=== PATIENT | male | born 1940 | race Caucasian/White ===

== ENCOUNTER 2019-09-25 00:59 | Emergency (ER) | payer OTHER ==
[2019-09-25] MEDS ORDERED: TAMSULOSIN 0.4 MG SR CAP ONE (01:23)
[2019-09-25] MEDS ORDERED: CIPROFLOXACIN HCL 500 MG TAB ONE (01:23)
--- NOTE | 2019-09-25 01:25 | EDPHYS ---
Physician Documentation [facility] Name: Hiram Tomlinson Age: 78 yrs Sex: Male : 1940 Arrival Date: 09/25/2019 Time: 01:02 Bed 5 Private MD: ED Physician Norman Maldonado HPI: 09/25 01:21 This 78 yrs old Male presents to ER via Ambulatory with complaints of Urinary dannie Problem. 01:21 The patient presents with urinary symptoms, dribbling of urine, retention. Onset: The dannie symptoms/episode began/occurred 2 day(s) ago. Modifying factors: The symptoms are alleviated by nothing, the symptoms are aggravated by movement, pressure. Associated signs and symptoms: The patient has no apparent associated signs or symptoms. Severity of symptoms: At their worst the symptoms were mild, in the emergency department the symptoms are unchanged. The patient has not experienced similar symptoms in the past. Historical: - Allergies: 01:15 No Known Allergies; rr5 - PMHx: 01:15 COPD; rr5 - PSHx: 01:15 hip surgery; rr5 - Immunization history:: Flu vaccine is not up to date. - Social history:: Smoking status: Patient/guardian denies using tobacco. - Ebola Screening: : No symptoms or risks identified at this time. - Family history:: not pertinent. ROS: 01:21 Constitutional: Negative for fever, chills, and weight loss, Eyes: Negative for injury, dannie pain, redness, and discharge, ENT: Negative for injury, pain, and discharge, Neck: Negative for injury, pain, and swelling, Cardiovascular: Negative for chest pain, palpitations, and edema, Respiratory: Negative for shortness of breath, cough, wheezing, and pleuritic chest pain, Abdomen/GI: Negative for abdominal pain, nausea, vomiting, diarrhea, and constipation, Back: Negative for injury and pain, MS/Extremity: Negative for injury and deformity, Skin: Negative for injury, rash, and discoloration, Neuro: Negative for headache, weakness, numbness, tingling, and seizure, Psych: Negative for depression, anxiety, suicide ideation, homicidal ideation, and hallucinations, Allergy/Immunology: Negative for hives, rash, and allergies, Endocrine: Negative for neck swelling, polydipsia, polyuria, polyphagia, and marked weight changes, Hematologic/Lymphatic: Negative for swollen nodes, abnormal bleeding, and unusual bruising. 01:21 : Positive for urinary symptoms, of the suprapubic area. Exam: 01:21 Constitutional: This is a well developed, well nourished patient who is awake, alert, dannie and in no acute distress. Head/Face: Normocephalic, atraumatic. Eyes: Pupils equal round and reactive to light, extra-ocular motions intact. Lids and lashes normal. Conjunctiva and sclera are non-icteric and not injected. Cornea within normal limits. Periorbital areas with no swelling, redness, or edema. ENT: Nares patent. No nasal discharge, no septal abnormalities noted. Tympanic membranes are normal and external auditory canals are clear. Oropharynx with no redness, swelling, or masses, exudates, or evidence of obstruction, uvula midline. Mucous membranes moist. Neck: Trachea midline, no thyromegaly or masses palpated, and no cervical lymphadenopathy. Supple, full range of motion without nuchal rigidity, or vertebral point tenderness. No Meningismus. Chest/axilla: Normal chest wall appearance and motion. Nontender with no deformity. No lesions are appreciated. Cardiovascular: Regular rate and rhythm with a normal S1 and S2. No gallops, murmurs, or rubs. Normal PMI, no JVD. No pulse deficits. Respiratory: Lungs have equal breath sounds bilaterally, clear to auscultation and percussion. No rales, rhonchi or wheezes noted. No increased work of breathing, no retractions or nasal flaring. Back: No spinal tenderness. No costovertebral tenderness. Full range of motion. Skin: Warm, dry with normal turgor. Normal color with no rashes, no lesions, and no evidence of cellulitis. MS/ Extremity: Pulses equal, no cyanosis. Neurovascular intact. Full, normal range of motion. Neuro: Awake and alert, GCS 15, oriented to person, place, time, and situation. Cranial nerves II-XII grossly intact. Motor strength 5/5 in all extremities. Sensory grossly intact. Cerebellar exam normal. Normal gait. Psych: Awake, alert, with orientation to person, place and time. Behavior, mood, and affect are within normal limits. 01:21 Abdomen/GI: Inspection: distension, Bowel sounds: normal, Palpation: mild abdominal tenderness, in the suprapubic area, right lower quadrant and left lower quadrant, Liver: no appreciated palpable abnormalities, Hernia: not appreciated. Vital Signs: 01:11 BP 156 / 80; Pulse 98; Resp 18; Temp 97.7; Pulse Ox 95% on R/A; Weight 61.23 kg; Height aa1 5 ft. 8 in. (172.72 cm); 01:49 BP 129 / 59; Pulse 90; Resp 17; Pulse Ox 97% ; Pain 0/10; rr5 01:11 Body Mass Index 20.53 (61.23 kg, 172.72 cm) aa1 MDM: 01:07 Patient medically screened. [facility] 01:23 Data reviewed: vital signs, nurses notes, lab test result(s), urinalysis. [facility] 09/25 01:20 Order name: Urine Culture [facility] 09/25 01:30 Order name: Urine Dipstick--Ancillary (enter results) [facility] 09/25 01:20 Order name: Urine Dipstick-Ancillary (obtain specimen); Complete Time: : [facility] 09/25 01:20 Order name: Ni; Complete Time: : [facility] 09/25 01:20 Order name: Ni Leg Bag; Complete Time: : [facility] 09/25 01:27 Order name: Bladder Scanner; Complete Time: : rr5 Administered Medications: 01:26 Drug: Cipro 500 mg Route: PO; ao 02:04 Follow up: Response: No adverse reaction rr5 01:26 Drug: Flomax 0.4 mg Route: PO; ao 02:03 Follow up: Response: No adverse reaction rr5 Disposition: 09/25/19 01:24 Discharged to Home. Impression: Retention of urine, Retention of urine, unspecified. - Condition is Stable. - Discharge Instructions: Ni Catheter Care, Adult, Acute Urinary Retention, Male, Acute Urinary Retention, Male, [id number], Ni Catheter Care, Adult, [id number]. - Prescriptions for Cipro 250 mg Oral Tablet - take 1 tablet by ORAL route every 12 hours; 20 tablet. Flomax 0.4 mg Oral Capsule, Sust. Release 24 hr - take 1 capsule by ORAL route once daily 1/2 hour following the same meal each day; 30 capsule. - Medication Reconciliation Form, Thank You Letter, Antibiotic Education, Prescription Opioid Use form. - Follow up: Private Physician; When: 2 - 3 days; Reason: Recheck today's complaints, Continuance of care, Re-evaluation by your physician. Follow up: Ernesto Arellano MD; When: 1 - 2 days; Reason: Recheck today's complaints, Re-evaluation by your physician. - Problem is new. - Symptoms have improved. Signatures: Dispatcher [employer] EDMS Florecita Singh RN RN aa1 Norman Maldonado MD MD cha Ortiz, Alex, RN RN ao Roque, Raymond, RN RN rr5 Corrections: (The following items were deleted from the chart) 02:04 01:24 09/25/2019 01:24 Discharged to Home. Impression: Retention of urine; Retention of rr5 urine, unspecified. Condition is Stable. Forms are Medication Reconciliation Form, Thank You Letter, Antibiotic Education, Prescription Opioid Use. Follow up: Private Physician; When: 2 - 3 days; Reason: Recheck today's complaints, Continuance of care, Re-evaluation by your physician. Follow up: Ernesto Arellano; When: 1 - 2 days; Reason: Recheck today's complaints, Re-evaluation by your physician. Problem is new. Symptoms have improved. dannie
--- NOTE | 2019-09-25 01:25 | ER ---
Nurse's Notes [facility] Name: Hiram Tomlinson Age: 78 yrs Sex: Male : 1940 Arrival Date: 09/25/2019 Time: 01:02 Bed 5 Private MD: Diagnosis: Retention of urine;Retention of urine, unspecified Presentation: 09/25 01:11 Presenting complaint: Patient states: difficulty voiding since about noon this aa1 afternoon. Reports no rodney hx of urinary problems. Transition of care: patient was not received from another setting of care. Onset of symptoms was September 24, 2019 at 12:00. Risk Assessment: Do you want to hurt yourself or someone else? Patient reports no desire to harm self or others. Initial Sepsis Screen: Does the patient meet any 2 criteria? HR > 90 bpm. Does the patient have a suspected source of infection? Yes: Dysuria/Frequency/Urgency/UTI. Care prior to arrival: None. 01:11 Method Of Arrival: Ambulatory aa1 01:11 Acuity: BERTRAM 3 aa1 Triage Assessment: 01:11 General: Appears in no apparent distress. comfortable, Behavior is calm, cooperative, aa1 appropriate for age. Historical: - Allergies: 01:15 No Known Allergies; rr5 - PMHx: 01:15 COPD; rr5 - PSHx: 01:15 hip surgery; rr5 - Immunization history:: Flu vaccine is not up to date. - Social history:: Smoking status: Patient/guardian denies using tobacco. - Ebola Screening: : No symptoms or risks identified at this time. - Family history:: not pertinent. Screenin:18 Abuse screen: Denies threats or abuse. Denies injuries from another. Nutritional ao screening: No deficits noted. Tuberculosis screening: No symptoms or risk factors identified. Fall Risk None identified. Assessment: 01:16 General: Appears in no apparent distress. comfortable, slender, well groomed, well ao developed, Behavior is calm, cooperative, appropriate for age. Pain: Complains of pain in abdomen. Neuro: Level of Consciousness is awake, alert, obeys commands, Oriented to person, place, time, situation, Appropriate for age Moves all extremities. Full function Speech is normal, Facial symmetry appears normal. Cardiovascular: Capillary refill < 3 seconds Patient's skin is warm and dry. Respiratory: Airway is patent Respiratory effort is even, unlabored, Respiratory pattern is regular, symmetrical. GI: Abdomen is distended, Patient currently denies nausea, vomiting. : Reports inability to void, since 12 hours [employer]. EENT: No signs and/or symptoms were reported regarding the EENT system. Derm: Skin is intact, Skin is pink, warm \T\ dry. normal, Skin temperature is warm. Musculoskeletal: Circulation, motion, and sensation intact. Range of motion: intact in all extremities. 01:30 Reassessment: initial drain of urine yellow clear 1000 ml. catheter clamp temporarily. rr5 01:40 Reassessment: Patient appears in no apparent distress at this time. Patient is alert, rr5 oriented x 3, equal unlabored respirations, skin warm/dry/pink. clamp reopen urine starts to drain in urine bag. Patient states feeling better. Patient states symptoms have improved. 02:00 Reassessment: Patient appears in no apparent distress at this time. Patient is alert, rr5 oriented x 3, equal unlabored respirations, skin warm/dry/pink. discharge instruction, Sheffield catheter care given and explained without complaints made, verbalized understanding. Vital Signs: 01:11 BP 156 / 80; Pulse 98; Resp 18; Temp 97.7; Pulse Ox 95% on R/A; Weight 61.23 kg; Height aa1 5 ft. 8 in. (172.72 cm); 01:49 BP 129 / 59; Pulse 90; Resp 17; Pulse Ox 97% ; Pain 0/10; rr5 01:11 Body Mass Index 20.53 (61.23 kg, 172.72 cm) aa1 ED Course: 01:02 Patient arrived in ED. es 01:07 Norman Maldonado MD is Attending Physician. dannie 01:11 Arm band placed on right wrist. aa1 01:15 Triage completed. aa1 01:15 Bladder scan completed. 875 ml. rr5 01:16 Josep Ferris, TRUDI is Primary Nurse. ao 01:19 Patient has correct armband on for positive identification. Placed in gown. Bed in low ao position. Call light in reach. Side rails up X 1. Pulse ox on. NIBP on. 01:20 Sheffield cath inserted, using sterile technique, 16 Fr., by nj, balloon inflated, to rr5 gravity drainage, urine specimen collected. 01:20 Urine collected: Sheffield catheter specimen, clear, Amount Returned: 1200mL. rr5 01:23 Ernseto Arellano MD is Referral Physician. [facility] 02:01 No provider procedures requiring assistance completed. Patient did not have IV access rr5 during this emergency room visit. Administered Medications: 01:26 Drug: Cipro 500 mg Route: PO; ao 02:04 Follow up: Response: No adverse reaction rr5 01:26 Drug: Flomax 0.4 mg Route: PO; ao 02:03 Follow up: Response: No adverse reaction rr5 Outcome: 01:24 Discharge ordered by . [facility] 02:00 Discharged to home ambulatory, with family. rr5 02:00 Condition: stable 02:00 Discharge instructions given to patient, family, Instructed on discharge instructions, follow up and referral plans. medication usage, Sheffield catheter care Demonstrated understanding of instructions, follow-up care, medications, sheffield catheter care Prescriptions given X 2. 02:04 Patient left the ED. rr5 Signatures: Florecita Singh RN RN aa1 Norman Maldonado MD MD cha Salyer, Edna es Ortiz, Alex RN Juan Manuel Brooks RN RN rr5
[2019-09-25 01:59] LABS: Urine Blood 1+ (NEG); Urine Glucose NEGATIVE (NEG); Urine Protein NEGATIVE (NEG)
[2019-09-25 02:23] VITALS: TEMP 97.7
[2019-09-25 02:24] VITALS: BP 129/59; O2SAT 97
== END 2019-09-25 02:04 | disposition home or self-care (01) ==
LOC: ER 00:59
DX: R33.9 Retention of urine, unspecified (principal)
CPT/HCPCS: 51702; 81003; 87086; 87088; 99284

== ENCOUNTER 2019-10-03 02:57 | Emergency (ER) | payer OTHER ==
--- NOTE | 2019-10-03 03:42 | EDPHYS ---
Physician Documentation [facility] Name: Hiram Tomlinson Age: 78 yrs Sex: Male : 1940 Arrival Date: 10/03/2019 Time: 03:02 Bed 5 Private MD: ELVIA Physician Norman Maldonado HPI: 10/03 03:37 This 78 yrs old Male presents to ER via Ambulatory with complaints of Urinary dannie Incontinence. 03:37 The patient presents with urinary symptoms, retention. Onset: The symptoms/episode dannie began/occurred 1 day(s) ago. Modifying factors: The symptoms are alleviated by nothing, the symptoms are aggravated by urinating. Associated signs and symptoms: The patient has no apparent associated signs or symptoms. Severity of symptoms: At their worst the symptoms were mild, in the emergency department the symptoms are unchanged. The patient has not experienced similar symptoms in the past. Historical: - Allergies: 03:35 No Known Allergies; fc - Home Meds: 03:35 None [Active]; fc - PMHx: 03:35 COPD; fc - PSHx: 03:35 hip surgery; fc - Immunization history:: Last tetanus immunization: up to date Flu vaccine is up to date. - Social history:: Smoking status: Patient/guardian denies using tobacco, Patient/guardian denies using alcohol, street drugs. - Ebola Screening: : Patient negative for fever greater than or equal to 101.5 degrees Fahrenheit, and additional compatible Ebola Virus Disease symptoms Patient denies exposure to infectious person Patient denies travel to an Ebola-affected area in the 21 days before illness onset. - Family history:: not pertinent. ROS: 03:37 Constitutional: Negative for fever, chills, and weight loss, Eyes: Negative for injury, dannie pain, redness, and discharge, ENT: Negative for injury, pain, and discharge, Neck: Negative for injury, pain, and swelling, Cardiovascular: Negative for chest pain, palpitations, and edema, Respiratory: Negative for shortness of breath, cough, wheezing, and pleuritic chest pain, Abdomen/GI: Negative for abdominal pain, nausea, vomiting, diarrhea, and constipation, Back: Negative for injury and pain, MS/Extremity: Negative for injury and deformity, Skin: Negative for injury, rash, and discoloration, Neuro: Negative for headache, weakness, numbness, tingling, and seizure, Psych: Negative for depression, anxiety, suicide ideation, homicidal ideation, and hallucinations, Allergy/Immunology: Negative for hives, rash, and allergies, Endocrine: Negative for neck swelling, polydipsia, polyuria, polyphagia, and marked weight changes, Hematologic/Lymphatic: Negative for swollen nodes, abnormal bleeding, and unusual bruising. 03:37 : Positive for urinary symptoms, difficulty urinating. Exam: 03:37 Constitutional: This is a well developed, well nourished patient who is awake, alert, adnnie and in no acute distress. Head/Face: Normocephalic, atraumatic. Eyes: Pupils equal round and reactive to light, extra-ocular motions intact. Lids and lashes normal. Conjunctiva and sclera are non-icteric and not injected. Cornea within normal limits. Periorbital areas with no swelling, redness, or edema. ENT: Nares patent. No nasal discharge, no septal abnormalities noted. Tympanic membranes are normal and external auditory canals are clear. Oropharynx with no redness, swelling, or masses, exudates, or evidence of obstruction, uvula midline. Mucous membranes moist. Neck: Trachea midline, no thyromegaly or masses palpated, and no cervical lymphadenopathy. Supple, full range of motion without nuchal rigidity, or vertebral point tenderness. No Meningismus. Chest/axilla: Normal chest wall appearance and motion. Nontender with no deformity. No lesions are appreciated. Cardiovascular: Regular rate and rhythm with a normal S1 and S2. No gallops, murmurs, or rubs. Normal PMI, no JVD. No pulse deficits. Respiratory: Lungs have equal breath sounds bilaterally, clear to auscultation and percussion. No rales, rhonchi or wheezes noted. No increased work of breathing, no retractions or nasal flaring. Back: No spinal tenderness. No costovertebral tenderness. Full range of motion. Male : Normal genitalia with no discharge or lesions. Skin: Warm, dry with normal turgor. Normal color with no rashes, no lesions, and no evidence of cellulitis. MS/ Extremity: Pulses equal, no cyanosis. Neurovascular intact. Full, normal range of motion. Neuro: Awake and alert, GCS 15, oriented to person, place, time, and situation. Cranial nerves II-XII grossly intact. Motor strength 5/5 in all extremities. Sensory grossly intact. Cerebellar exam normal. Normal gait. Psych: Awake, alert, with orientation to person, place and time. Behavior, mood, and affect are within normal limits. 03:37 Abdomen/GI: Inspection: distension, Bowel sounds: normal, Palpation: mild abdominal tenderness, in the suprapubic area, Liver: no appreciated palpable abnormalities, Hernia: not appreciated. Vital Signs: 03:10 BP 128 / 64; Pulse 88; Resp 18; Temp 97.6(TE); Pulse Ox 95% on R/A; Weight 61.23 kg (R); Height 5 ft. 8 in. (172.72 cm) (R); Pain 9/10; 03:10 Body Mass Index 20.53 (61.23 kg, 172.72 cm) MDM: 03:27 Patient medically screened. [facility] 03:39 Data reviewed: vital signs, nurses notes, lab test result(s), urinalysis. [facility] 10/03 03:29 Order name: Urine Culture [facility] 10/03 03:47 Order name: Urine Dipstick--Ancillary (enter results) [facility] 10/03 03:29 Order name: Urine Dipstick-Ancillary (obtain specimen); Complete Time: 03:42 [facility] 10/03 03:29 Order name: Ni; Complete Time: 03:39 [facility] 10/03 03:29 Order name: Ni Leg Bag; Complete Time: 03:39 [facility] 10/03 03:29 Order name: Bladder Scanner; Complete Time: 03:34 [facility] Administered Medications: 03:41 Not Given (Pt already taking at home): Flomax 0.4 mg PO once 03:41 Not Given (Pt already taking at home): Cipro 500 mg PO once fc Disposition: 10/03/19 03:41 Discharged to Home. Impression: Retention of urine. - Condition is Stable. - Discharge Instructions: Ni Catheter Care, Adult, Acute Urinary Retention, Male, [id number], Ni Catheter Care, Adult, [id number]. - Medication Reconciliation Form, Thank You Letter, Antibiotic Education, Prescription Opioid Use form. - Follow up: Private Physician; When: 2 - 3 days; Reason: Recheck today's complaints, Continuance of care, Re-evaluation by your physician. Follow up: Abbey Espinosa MD; When: 2 - 3 days; Reason: Recheck today's complaints, Continuance of care, Re-evaluation by your physician. - Problem is new. - Symptoms have improved. Signatures: Dispatcher [employer] Norman Pandey MD MD cha Chretien, Felicia, RN RN fc Corrections: (The following items were deleted from the chart) 03:49 03:41 10/03/2019 03:41 Discharged to Home. Impression: Retention of urine. Condition is fc Stable. Forms are Medication Reconciliation Form, Thank You Letter, Antibiotic Education, Prescription Opioid Use. Follow up: Private Physician; When: 2 - 3 days; Reason: Recheck today's complaints, Continuance of care, Re-evaluation by your physician. Follow up: Abbey Espinosa; When: 2 - 3 days; Reason: Recheck today's complaints, Continuance of care, Re-evaluation by your physician. Problem is new. Symptoms have improved. dannie
--- NOTE | 2019-10-03 03:42 | ER ---
Nurse's Notes [facility] Name: Hiram Tomlinson Age: 78 yrs Sex: Male : 1940 Arrival Date: 10/03/2019 Time: 03:02 Bed 5 Private MD: Diagnosis: Retention of urine Presentation: 10/03 03:10 Presenting complaint: Patient states: that he was here on the 15 unable to void. A fc sheffield was placed that day and he was sent home with it and rx's for Cipro and Flomax. Pt then went to see Dr Espinosa yesterday the and the sheffield was removed. Since he left there he has not been able to urinate. He is having increase lower abd pressure. Transition of care: patient was not received from another setting of care. Onset of symptoms was October 02, 2019. Risk Assessment: Do you want to hurt yourself or someone else? Patient reports no desire to harm self or others. Initial Sepsis Screen: Does the patient meet any 2 criteria? No. Patient's initial sepsis screen is negative. Does the patient have a suspected source of infection? No. Patient's initial sepsis screen is negative. Care prior to arrival: None. 03:10 Method Of Arrival: Ambulatory fc 03:10 Acuity: BERTRAM 4 fc Triage Assessment: 03:10 General: Appears uncomfortable, slender, well groomed, Behavior is calm, cooperative, fc appropriate for age. Pain: Complains of pain in suprapubic area Pain currently is 9 out of 10 on a pain scale. Quality of pain is described as pressure, Pain began 1 day ago. Is continuous. EENT: No deficits noted. Neuro: Level of Consciousness is awake, alert, obeys commands, Oriented to person, place, time, situation, Appropriate for age. Cardiovascular: No deficits noted. Respiratory: No deficits noted. GI: No deficits noted. : Reports inability to void, since yesterday at 0800 pain in suprapubic area. Derm: Skin is pink, warm \T\ dry. Musculoskeletal: Circulation, motion, and sensation intact. Capillary refill < 3 seconds, Range of motion: intact in all extremities. Historical: - Allergies: 03:35 No Known Allergies; fc - Home Meds: 03:35 None [Active]; fc - PMHx: 03:35 COPD; fc - PSHx: 03:35 hip surgery; fc - Immunization history:: Last tetanus immunization: up to date Flu vaccine is up to date. - Social history:: Smoking status: Patient/guardian denies using tobacco, Patient/guardian denies using alcohol, street drugs. - Ebola Screening: : Patient negative for fever greater than or equal to 101.5 degrees Fahrenheit, and additional compatible Ebola Virus Disease symptoms Patient denies exposure to infectious person Patient denies travel to an Ebola-affected area in the 21 days before illness onset. - Family history:: not pertinent. Screenin:32 Abuse screen: Denies threats or abuse. Nutritional screening: No deficits noted. fc Tuberculosis screening: No symptoms or risk factors identified. Fall Risk None identified. Assessment: 03:20 Reassessment: bladder scanner 771 ml. 03:25 General: Appears in no apparent distress. uncomfortable, Behavior is calm, cooperative, jd3 appropriate for age. Pain: Complains of pain in suprapubic area Quality of pain is described as pressure. Neuro: Level of Consciousness is awake, alert, obeys commands, Oriented to person, place, time, situation. Cardiovascular: Denies chest pain, Capillary refill < 3 seconds Patient's skin is warm and dry. Respiratory: Airway is patent Respiratory effort is even, unlabored, Respiratory pattern is regular, symmetrical, Denies cough, shortness of breath. GI: No signs and/or symptoms were reported involving the gastrointestinal system. : Reports inability to void. EENT: No signs and/or symptoms were reported regarding the EENT system. Derm: Skin is intact, Skin is dry, Skin is normal, Skin temperature is warm. Musculoskeletal: Circulation, motion, and sensation intact. Range of motion: intact in all extremities. 03:32 Reassessment: See triage assessment. fc 03:41 Reassessment: Dr Maldonado ordered Cipro and Flomax. Pt already taking at home per Dr sonia Espinosa orders. Ok for pt to continue his own scripts. 03:45 Reassessment: Pt being discharged with sheffield. sheffield with light pink urine in it. Was fc emptied prior to pt leaving. Vital Signs: 03:10 BP 128 / 64; Pulse 88; Resp 18; Temp 97.6(TE); Pulse Ox 95% on R/A; Weight 61.23 kg (R); Height 5 ft. 8 in. (172.72 cm) (R); Pain 9/10; 03:10 Body Mass Index 20.53 (61.23 kg, 172.72 cm) ED Course: 03:02 Patient arrived in ED. ag3 03:10 Arm band placed on Patient placed in an exam room, on a stretcher. fc 03:23 Rylan Gunn RN is Primary Nurse. gladys 03:27 Norman Maldonado MD is Attending Physician. dannie 03:30 Triage completed. fc 03:32 Patient has correct armband on for positive identification. Placed in gown. Bed in low fc position. Call light in reach. Side rails up X 1. Pulse ox on. NIBP on. 03:32 No provider procedures requiring assistance completed. Patient did not have IV access fc during this emergency room visit. 03:38 Sheffield cath inserted, using sterile technique, 18 Fr., by mo, balloon inflated, to ut gravity drainage, urine specimen collected. 03:40 Abbey Espinosa MD is Referral Physician. [facility] Administered Medications: 03:41 Not Given (Pt already taking at home): Flomax 0.4 mg PO once fc 03:41 Not Given (Pt already taking at home): Cipro 500 mg PO once fc Output: 03:48 Urine: 700ml (Sheffield); Total: 700ml. fc Outcome: 03:41 Discharge ordered by . [facility] 03:44 Discharged to home ambulatory, with family. 03:44 Condition: good 03:44 Discharge instructions given to patient, family, Instructed on discharge instructions, follow up and referral plans. sheffield cath care and continuation of Cipro and Flomax Demonstrated understanding of instructions, follow-up care, sheffield cath care and continuation of medications Prescriptions given X none 03:49 Patient left the ED. fc Signatures: Norman Maldonado MD MD cha Chretien, Felicia, RN RN Yelena Sandoval ut Rylan Gunn RN RN jd3 Gomez, Alice ag3 Corrections: (The following items were deleted from the chart) 03:48 03:39 Urine 1000, (Sheffield), Output Total 1000. [facility]
[2019-10-03 03:55] LABS: Urine Blood 3+ (NEG); Urine Glucose NEGATIVE (NEG); Urine Protein NEGATIVE (NEG)
[2019-10-03 03:56] VITALS: BP 128/64; TEMP 97.6; O2SAT 95
== END 2019-10-03 03:49 | disposition home or self-care (01) ==
LOC: ER 02:57
DX: R33.9 Retention of urine, unspecified (principal); J44.9 Chronic obstructive pulmonary disease, unspecified
CPT/HCPCS: 51702; 81003; 87086; 87088; 99284

== ENCOUNTER 2020-04-22 10:02 | Emergency (ER) | payer OTHER ==
--- NOTE | 2020-04-22 11:07 | RAD REPORT ---
EXAM DESCRIPTION: RAD - Ribs Left - 04/22/2020 10:39 am CLINICAL HISTORY: Left rib pain FINDINGS: No fracture seen
--- NOTE | 2020-04-22 11:08 | RAD REPORT ---
EXAM DESCRIPTION: [place] Single View04/22/2020 10:39 am CLINICAL HISTORY: Chest pain COMPARISON: 2019 FINDINGS: The lungs are hyperaerated. The lungs appear clear of acute infiltrate. The heart is normal size IMPRESSION: No acute abnormalities displayed
--- NOTE | 2020-04-22 11:12 | ER ---
Nurse's Notes [facility] Name: Hiram Tomlinson Age: 79 yrs Sex: Male : 1940 Arrival Date: 04/22/2020 Time: 10:04 Bed 20 Private MD: Diagnosis: Fall on same level from slipping, tripping and stumbling;Contusion of left back wall of thorax Presentation: 04/22 10:20 Chief complaint: Patient states: fell yesterday afternoon , fell against a chair, now iw has bruising to left mid back area, and has pain when he moves, no SOB or diff breathing. Ebola Screen: Patient negative for fever greater than or equal to 101.5 degrees Fahrenheit, and additional compatible Ebola Virus Disease symptoms Patient denies exposure to infectious person. Patient denies travel to an Ebola-affected area in the 21 days before illness onset. No symptoms or risks identified at this time. Initial Sepsis Screen: Does the patient meet any 2 criteria? No. Patient's initial sepsis screen is negative. Does the patient have a suspected source of infection? No. Patient's initial sepsis screen is negative. Risk Assessment: Do you want to hurt yourself or someone else? Patient reports no desire to harm self or others. Onset of symptoms was April 21, 2020. 10:20 Method Of Arrival: Ambulatory iw 10:20 Acuity: BERTRAM 4 iw 11:00 Coronavirus screen: Proceed with normal triage. bp Triage Assessment: 10:50 General: Appears in no apparent distress. uncomfortable, Behavior is calm, cooperative, bp appropriate for age. Pain: Complains of pain in left mid back. EENT: No deficits noted. Neuro: No deficits noted. Cardiovascular: No deficits noted. Respiratory: No deficits noted. GI: No signs and/or symptoms were reported involving the gastrointestinal system. : No signs and/or symptoms were reported regarding the genitourinary system. Derm: No deficits noted. Musculoskeletal: No deficits noted. Historical: - Allergies: 10:22 No Known Allergies; iw - PMHx: 10:22 COPD; iw - PSHx: 10:22 hip surgery; iw - Immunization history:: Adult Immunizations up to date. - Social history:: Smoking status: Patient/guardian denies using tobacco, the patient reports quitting approximately 10 years ago. Screenin:03 Abuse screen: Denies threats or abuse. Denies injuries from another. Nutritional bp screening: No deficits noted. Tuberculosis screening: No symptoms or risk factors identified. Fall Risk Fall in past 12 months (25 points). No secondary diagnosis (0 pts). No IV (0 pts). Ambulatory Aid- Crutches/Cane/Walker (15 pts). Gait- Normal/Bed Rest/Wheelchair (0 pts) Mental Status- Oriented to own ability (0 pts). Total Kaye Fall Scale indicates Low Risk Score (25-44 pts). Fall prevention measures have been instituted. Side Rails Up X 2 Placed close to Nursing Station Frequent Obs/Assesments occuring As available Patient and Family Educated on Fall Prevention Program and strategies. Assessment: 11:00 General: SEE TRIAGE NOTE. bp 11:29 Reassessment: PT D/C HOME AMBULATORY WITH FAMILY, DX WITH RIB CONTUSION. bp Vital Signs: 10:20 BP 122 / 98; Pulse 78; Resp 16; Temp 98.0; Pulse Ox 96% on R/A; Weight 58.97 kg; Height iw 5 ft. 4 in. (162.56 cm); Pain 6/10; 11:29 BP 131 / 81; Pulse 75; Resp 16; Temp 98; Pulse Ox 97% ; bp 10:20 Body Mass Index 22.31 (58.97 kg, 162.56 cm) iw ED Course: 10:04 Patient arrived in ED. ag5 10:09 Jean[facility] Ngo [facility]-C [facility] kb 10:09 Diamond Al MD is Attending Physician. kb 10:20 Hetal Salamanca, RN is Primary Nurse. iw 10:21 Triage completed. iw 10:21 Arm band placed on. iw 10:30 Chest Single View XRAY In Process Unspecified. EDMS 10:30 Ribs Left XRAY In Process Unspecified. EDMS 10:53 Primary Nurse role handed off by Hetal Salamanca, TRUDI bp 10:53 Ryan Bland, TRUDI is Primary Nurse. bp 11:03 Patient has correct armband on for positive identification. Bed in low position. Call bp light in reach. Side rails up X2. 11:29 No provider procedures requiring assistance completed. Patient did not have IV access bp during this emergency room visit. Administered Medications: No medications were administered Outcome: 11:12 Discharge ordered by MD. caballero 11:29 Discharged to home ambulatory, with family. bp 11:29 Condition: stable 11:29 Discharge instructions given to patient, Instructed on discharge instructions, follow up and referral plans. Demonstrated understanding of instructions, follow-up care. 11:32 Patient left the ED. bp Signatures: Dispatcher [employer] EDMS Jeanie Ngo, CARMEN-Gladis MORALES-Hetal Villagomez RN RN iw Peltier, Brian, RN RN Ninoska Knight ag5
--- NOTE | 2020-04-22 11:12 | EDPHYS ---
Physician Documentation [facility] Name: Hiram Tomlinson Age: 79 yrs Sex: Male : 1940 Arrival Date: 04/22/2020 Time: 10:04 Bed 20 Private MD: ED Physician Diamond Al HPI: 04/22 10:16 This 79 yrs old Male presents to ER via Unassigned with complaints of Fall kb Injury, Rib Pain. 10:16 Details of fall: The patient fell from an upright position, while standing. Onset: The kb symptoms/episode began/occurred yesterday. Associated injuries: The patient sustained left mid back, ecchymosis, painful injury. Severity of symptoms: At their worst the symptoms were moderate, in the emergency department the symptoms are unchanged. The patient has not experienced similar symptoms in the past. The patient has not recently seen a physician. Pt [place] against a chair then to the ground. Believes chair hit him in the posterior left lower ribs. "they are either bruised or cracked." Denies any other pain, denies hitting head. . Historical: - Allergies: 10:22 No Known Allergies; iw - PMHx: 10:22 COPD; iw - PSHx: 10:22 hip surgery; iw - Immunization history:: Adult Immunizations up to date. - Social history:: Smoking status: Patient/guardian denies using tobacco, the patient reports quitting approximately 10 years ago. ROS: 10:16 Constitutional: Negative for fever, chills, and weight loss, Cardiovascular: Negative kb for chest pain, palpitations, and edema, Respiratory: Negative for shortness of breath, cough, wheezing, and pleuritic chest pain, Abdomen/GI: Negative for abdominal pain, nausea, vomiting, diarrhea, and constipation, MS/Extremity: Negative for injury and deformity, Skin: Negative for injury, rash, and discoloration, Neuro: Negative for headache, weakness, numbness, tingling, and seizure. 10:16 Back: Positive for pain with movement, of the left mid back. Exam: 10:16 Constitutional: This is a well developed, well nourished patient who is awake, alert, kb and in no acute distress. Head/Face: Normocephalic, atraumatic. Chest/axilla: Normal chest wall appearance and motion. Nontender with no deformity. No lesions are appreciated. Cardiovascular: Regular rate and rhythm with a normal S1 and S2. No gallops, murmurs, or rubs. Normal PMI, no JVD. No pulse deficits. Respiratory: Lungs have equal breath sounds bilaterally, clear to auscultation and percussion. No rales, rhonchi or wheezes noted. No increased work of breathing, no retractions or nasal flaring. Abdomen/GI: Soft, non-tender, with normal bowel sounds. No distension or tympany. No guarding or rebound. No evidence of tenderness throughout. Skin: Warm, dry with normal turgor. Normal color with no rashes, no lesions, and no evidence of cellulitis. MS/ Extremity: Pulses equal, no cyanosis. Neurovascular intact. Full, normal range of motion. Neuro: Awake and alert, GCS 15, oriented to person, place, time, and situation. Cranial nerves II-XII grossly intact. Motor strength 5/5 in all extremities. Sensory grossly intact. Cerebellar exam normal. Normal gait. 10:16 Back: pain, that is mild, that is moderate, of the left mid back, ROM is painful, normal spinal alignment noted, CVA tenderness, is absent, vertebral tenderness, is not appreciated. Vital Signs: 10:20 BP 122 / 98; Pulse 78; Resp 16; Temp 98.0; Pulse Ox 96% on R/A; Weight 58.97 kg; Height iw 5 ft. 4 in. (162.56 cm); Pain 6/10; 11:29 BP 131 / 81; Pulse 75; Resp 16; Temp 98; Pulse Ox 97% ; bp 10:20 Body Mass Index 22.31 (58.97 kg, 162.56 cm) iw MDM: 10:10 Patient medically screened. kb 10:16 Data reviewed: vital signs, nurses notes. kb 11:11 Data interpreted: Pulse oximetry: on room air is 96 %. Interpretation: normal. kb Counseling: I had a detailed discussion with the patient and/or guardian regarding: the historical points, exam findings, and any diagnostic results supporting the discharge/admit diagnosis, radiology results, the need for outpatient follow up, a family practitioner, to return to the emergency department if symptoms worsen or persist or if there are any questions or concerns that arise at home. 04/22 10:14 Order name: Chest Single View XRAY; Complete Time: 11:11 kb 04/22 10:14 Order name: Ribs Left XRAY; Complete Time: 11:11 kb Administered Medications: No medications were administered Disposition: 18:49 Co-signature as Attending Physician, Diamond Al MD. ma2 Disposition: 04/22/20 11:12 Discharged to Home. Impression: Fall on same level from slipping, tripping and stumbling, Contusion of left back wall of thorax. - Condition is Stable. - Discharge Instructions: Rib Contusion, Contusion, [id number], Rib Fracture, [id number]. - Medication Reconciliation Form, Thank You Letter, Antibiotic Education, Prescription Opioid Use form. - Follow up: Emergency Department; When: As needed; Reason: Worsening of condition. Follow up: Private Physician; When: 2 - 3 days; Reason: Recheck today's complaints, Continuance of care, Re-evaluation by your physician. Signatures: Dispatcher [employer] EDJeanie Brennan, SKIN PILER-C SKIN PILER-Ckb Hetal Salamanca, Ryan Jacques RN, RN RN bp Alzahri, Mohammad, MD MD ma2 Corrections: (The following items were deleted from the chart) 10:19 10:16 Back: pain, that is mild, that is moderate, of the left mid back, ROM is painful, kb normal spinal alignment noted, vertebral tenderness, is not appreciated, kb 11:32 11:12 04/22/2020 11:12 Discharged to Home. Impression: Fall on same level from bp slipping, tripping and stumbling; Contusion of left back wall of thorax. Condition is Stable. Forms are Medication Reconciliation Form, Thank You Letter, Antibiotic Education, Prescription Opioid Use. Follow up: Emergency Department; When: As needed; Reason: Worsening of condition. Follow up: Private Physician; When: 2 - 3 days; Reason: Recheck today's complaints, Continuance of care, Re-evaluation by your physician. kb
[2020-04-22 11:39] VITALS: BP 131/81; TEMP 98; O2SAT 97
== END 2020-04-22 11:32 | disposition home or self-care (01) ==
LOC: ER 10:02
DX: S20.222A Contusion of left back wall of thorax, initial encounter (principal); W01.0XXA Fall on same level from slipping, tripping and stumbling without subsequent striking against object, initial encounter; Y93.54 Activity, bowling; Y92.39 Other specified sports and athletic area as the place of occurrence of the external cause
CPT/HCPCS: 71045; 99283

== ENCOUNTER 2020-06-15 11:47 | Emergency (ER) | payer OTHER ==
[2020-06-15 13:55] LABS: Absolute Lymphocytes (CBC) 0.9 K/uL (0.7-4.9); Basophils % 0.3 % (0-1.3); Hematocrit 44.4 % (39.6-49.0); Lymphocytes % 8.3 % (15.3-44.8); MPV 8.9 fL (7.6-11.3); RBC Red Blood Cell Count 4.84 M/uL (4.33-5.43)
[2020-06-15 13:56] LABS: Protime INR 0.93
--- NOTE | 2020-06-15 13:57 | RAD REPORT ---
EXAM DESCRIPTION: RAD - Chest Single View - 06/15/2020 1:37 pm CLINICAL HISTORY: weakdecreased appetite, shortness of breath COMPARISON: Single-view chest April 22 TECHNIQUE: AP portable chest image was obtained 06/15/2020 1:37 pm . FINDINGS: Lungs are fibrotic as a baseline. Interstitial pattern is accentuated by a slightly more s hallow inspiratory effort. A few small granulomas are present. No focal mass or consolidation. Signif icant failure or volume overload are not suspected. Heart and vasculature are normal. No measurable pleural effusion and no pneumothorax. No acute bony abnormality seen. No acute aortic findings suspected. IMPRESSION: Extensive interstitial lung disease accentuated by shallow inspiration. No focal consolidation. Mild interstitial edema or infiltrate could be masked by the chronic pattern.
[2020-06-15 14:18] LABS: ALT/SGPT 35 U/L (12-78); AST/SGOT 22 U/L (15-37); Albumin 3.5 g/dL (3.4-5.0); Alkaline Phosphatase 88 U/L (45-117); BUN Blood Urea Nitrogen 22 mg/dL (7-18); Bicarbonate 32 mmol/L (21-32); Bilirubin Direct 0.1 mg/dL (0-0.2); Bilirubin Total 0.4 mg/dL (0.2-1.0); Glucose Level 120 mg/dL (74-106); Magnesium 2.7 mg/dL (1.8-2.4); NT PRO-BNP 165 pg/mL (<450); Potassium 4.5 mmol/L (3.5-5.1); Protein, Total 7.2 g/dL (6.4-8.2); Sodium Level 144 mmol/L (136-145); Troponin (Emerg Dept Use Only) < 0.02 ng/mL (0.0-0.045)
[2020-06-15 14:21] LABS: Blood Morphology Comment NOT SEEN (NOT SEEN); Platelet Estimate ADEQ
--- NOTE | 2020-06-15 15:25 | RAD REPORT ---
EXAM DESCRIPTION: CT - Head Brain Wo Cont - 06/15/2020 3:14 pm CLINICAL HISTORY: dysphasia COMPARISON: No comparisons TECHNIQUE: Axial 5 mm thick images of the head were obtained without IV contrast. All CT scans are performed using dose optimization technique as appropriate and may include automated exposure control or mA/KV adjustment according to patient size. FINDINGS: No intracranial hemorrhage, mass, edema or shift of mid-line structures. No acute infarcti on changes seen. No cortical edema or sulcal effacement. Mild atrophy changes are present. Chronic is chemic changes minimal. Ventricles are in proportion to volume loss. Mastoid air cells and visualized portions of the paranasal sinuses are clear. No acute bony findings. IMPRESSION: No intracranial hemorrhage is present. No acute cortical infarction identified. Mild atrophy. Patient has minimal identifiable chronic ischemic change.
--- NOTE | 2020-06-15 17:13 | EDPHYS ---
Physician Documentation [facility] Name: Hiram Tomlinson Age: 79 yrs Sex: Male : 1940 Arrival Date: 06/15/2020 Time: 11:51 Bed 14 Private MD: ED Physician Cory Howard HPI: 06/16 07:18 This 79 yrs old Male presents to ER via Ambulatory with complaints of kdr Weakness, Unable to Eat. 07:18 The patient presents to the emergency department with a swallowing problem, difficulty. kdr The patient presents to the emergency department with a speech or higher order brain function problem, dysphasia. Onset: The symptoms/episode began/occurred gradually, at an unknown time. Has been ongoing for months but progressively getting worse. Context: occurred at home, occurred while the patient was. Associated signs and symptoms: Pertinent positives: The patient is having intermittent problems with speech, and managing his secretions. Daughter states that he has been having this problem for months but [facility]. HE is not able to eat solid food but can manage pureed food. Further, his saliva tends to collect in his mouth - though I do not note that he is currently drooling. His speech also appears to be garbled. Severity of symptoms: At their worst the symptoms were mild in the emergency department the symptoms are unchanged. Patient's baseline: Neuro: alert and fully oriented. Current symptoms: dysphasia, Garbled speech. This is an ongoing problem that is slowly getting worse. There is no new or acutely changing aspect of the current complaints. The patient has not recently seen a physician. Historical: - Allergies: 06/15 12:03 No Known Allergies; ss - PMHx: 12:03 COPD; ss - Immunization history:: Adult Immunizations up to date. - Social history:: Smoking status: Patient denies any tobacco usage or history of. ROS: 06/16 07:18 Constitutional: Negative for fever, chills, and weight loss, Eyes: Negative for injury, kdr pain, redness, and discharge, ENT: Negative for injury, pain, and discharge, Neck: Negative for injury, pain, and swelling, Cardiovascular: Negative for chest pain, palpitations, and edema, Respiratory: Negative for shortness of breath, cough, wheezing, and pleuritic chest pain, Abdomen/GI: Negative for abdominal pain, nausea, vomiting, diarrhea, and constipation, Back: Negative for injury and pain, : Negative for injury, bleeding, discharge, and swelling, MS/Extremity: Negative for injury and deformity, Skin: Negative for injury, rash, and discoloration, Psych: Negative for depression, anxiety, suicide ideation, homicidal ideation, and hallucinations, Allergy/Immunology: Negative for hives, rash, and allergies, Endocrine: Negative for neck swelling, polydipsia, polyuria, polyphagia, and marked weight changes, Hematologic/Lymphatic: Negative for swollen nodes, abnormal bleeding, and unusual bruising. Neuro: Positive for speech changes, weakness, Difficulty swallowing and managing oral secretions. Exam: 06/15 18:56 ECG was reviewed by the Attending Physician. kdr 06/16 07:18 Constitutional: This is a well developed, well nourished patient who is awake, alert, kdr and in no acute distress. Head/Face: Normocephalic, atraumatic. Eyes: Pupils equal round and reactive to light, extra-ocular motions intact. Lids and lashes normal. Conjunctiva and sclera are non-icteric and not injected. Cornea within normal limits. Periorbital areas with no swelling, redness, or edema. Neck: Trachea midline, no thyromegaly or masses palpated, and no cervical lymphadenopathy. Supple, full range of motion without nuchal rigidity, or vertebral point tenderness. No Meningismus. Chest/axilla: Normal chest wall appearance and motion. Nontender with no deformity. No lesions are appreciated. Cardiovascular: Regular rate and rhythm with a normal S1 and S2. No gallops, murmurs, or rubs. Normal PMI, no JVD. No pulse deficits. Respiratory: Lungs have equal breath sounds bilaterally, clear to auscultation and percussion. No rales, rhonchi or wheezes noted. No increased work of breathing, no retractions or nasal flaring. Abdomen/GI: Soft, non-tender, with normal bowel sounds. No distension or tympany. No guarding or rebound. No evidence of tenderness throughout. Back: No spinal tenderness. No costovertebral tenderness. Full range of motion. Skin: Warm, dry with normal turgor. Normal color with no rashes, no lesions, and no evidence of cellulitis. MS/ Extremity: Pulses equal, no cyanosis. Neurovascular intact. Full, normal range of motion. Neuro: Awake and alert, GCS 15, oriented to person, place, time, and situation. Cranial nerves II-XII grossly intact. Motor strength 5/5 in all extremities. Sensory grossly intact. Cerebellar exam normal. Normal gait. There is no apparent drooling at this time Psych: Awake, alert, with orientation to person, place and time. Behavior, mood, and affect are within normal limits. Vital Signs: 06/15 11:58 BP 126 / 73; Pulse 89; Resp 18; Temp 97.6(TE); Pulse Ox 92% on R/A; Weight 58.51 kg; ss Pain 0/10; 12:57 BP 138 / 62; Pulse 81; Resp 20; Pulse Ox 94% on R/A; jr10 14:10 BP 117 / 63; Pulse 78; Resp 18; Pulse Ox 100% on R/A; jr10 16:34 BP 117 / 77; Pulse 74; Resp 20; Pulse Ox 96% on R/A; jr10 17:29 BP 112 / 86; Pulse 73; Resp 20; Pulse Ox 98% on R/A; Pain 0/10; jr10 12:57 pt has hx of COPD jr10 NIH Stroke Scale Scores: 12:50 NIHSS Score: 1 jr10 MDM: 17:12 Patient medically screened. kdr 06/16 07:18 Data reviewed: vital signs, nurses notes, lab test result(s), radiologic studies. kdr Counseling: I had a detailed discussion with the patient and/or guardian regarding: the historical points, exam findings, and any diagnostic results supporting the discharge/admit diagnosis, lab results, radiology results, the need for outpatient follow up, Explained to patient and daughter that he will need further diagnostic work-up including MRI for possible diagnosis as well as neurology follow-up. Since now of his complaints are new or recently new and there is not an otherwise acute life threatening component to any of his current c/o, will defer further workup to outpatient. I had ordered MRI to be done in the ED but the technical staff left prior to completing this task.. 06/15 13:24 Order name: Basic Metabolic Panel; Complete Time: 15:43 kdr 06/15 13:24 Order name: CBC with Diff; Complete Time: 15:43 kdr 06/15 13:24 Order name: LFT's; Complete Time: 15:43 kdr 06/15 13:24 Order name: Magnesium; Complete Time: 15:43 kdr 06/15 13:24 Order name: NT PRO-BNP; Complete Time: 15:43 kdr 06/15 13:24 Order name: PT-INR; Complete Time: 15:43 kdr 06/15 13:24 Order name: Troponin (emerg Dept Use Only); Complete Time: 15:43 kdr 06/15 13:24 Order name: XRAY Chest (1 view); Complete Time: 15:43 kdr 06/15 13:24 Order name: EKG; Complete Time: 13:25 kdr 06/15 13:24 Order name: Cardiac monitoring; Complete Time: 13:43 kdr 06/15 13:24 Order name: EKG - Nurse/Tech; Complete Time: 13:55 kdr 06/15 13:58 Order name: Manual Differential; Complete Time: 15:43 EDMS 06/15 14:15 Order name: CT Head Brain wo Cont; Complete Time: 15:43 kdr 06/15 14:15 Order name: MRI Stroke Protocol [facility] 06/15 13:24 Order name: IV Saline Lock; Complete Time: 13:43 kdr 06/15 13:24 Order name: Labs collected and sent; Complete Time: 13:43 kdr 06/15 13:24 Order name: O2 Per Protocol; Complete Time: 13:43 kdr 06/15 13:24 Order name: O2 Sat Monitoring; Complete Time: 13:43 kdr EC/05 18:56 Rate is 71 beats/min. Rhythm is regular, Sinus Rhythm with No ectopy, Right bundle kdr branch block. QRS [place] is Normal. LA interval is normal. QRS interval is normal. QT interval is normal. Clinical impression: NSR w/ Non-specific ST/T Changes. Administered Medications: No medications were administered Disposition: 06/15/20 17:12 Discharged to Home. Impression: Dysphagia, Dysphasia. - Condition is Stable. - Discharge Instructions: Dysphagia, Dysphagia Diet Level 1, Pureed. - Medication Reconciliation Form, Thank You Letter form. - Follow up: Kemal Mendoza MD; When: 1 - 2 days; Reason: If symptoms return, Further diagnostic work-up, Recheck today's complaints, Continuance of care, Re-evaluation by your physician. - Problem is an ongoing problem. - Symptoms are unchanged. NIH Stroke Scale - NIH Stroke Score Date: 06/15/2020 Time: 12:50 Total Score = 1 1a. Level of Consciousness (LOC) - 0(Alert) 1b. Level of Consciousness (LOC) (Year \T\ Age) - 0(Both) 1c. LOC Commands (Open \T\ Closes Eyes/Cardiac Surgeon) - 0(Both) 2. Best Gaze (Lateral Gaze Paresis) - 0(Normal) 3. Visual Field Loss - 0(No visual loss) 4. Facial Palsy - 0(Normal) 5a. Left Arm: Motor (10-second hold) - 0(No drift) 5b. Right Arm: Motor (10-second hold) - 0(No drift) 6a. Left Leg: Motor (5-second hold - always test supine) - 0(No drift) 6b. Right Leg: Motor (5-second hold - always test supine) - 0(No drift) 7. Limb Ataxia (finger/nose \T\ heel/hernandez - test with eyes open) - 0(Absent) 8. Sensory Loss (pinprick arms/legs/face) - 0(Normal) 9. Best Language: Aphasia (description/naming/reading) - 0(No aphasia) 10. Dysarthria (speech clarity - read or repeat words) - 1(Mild to Moderate) 11. Extinction and Inattention (visual/tactile/auditory/spatial/personal) - 0(No abnormality) Initials: jr10 Signatures: Dispatcher [employer] EDMS Cory Howard MD MD [facility] Maryanne Hidalgo RN RN ss Rivera, Jessica, RN RN jr10 Corrections: (The following items were deleted from the chart) 17:31 17:12 06/15/2020 17:12 Discharged to Home. Impression: Dysphagia; Dysphasia. jr10 Condition is Stable. Forms are Medication Reconciliation Form, Thank You Letter, Antibiotic Education, Prescription Opioid Use. Follow up: Kemal Mendoza; When: 1 - 2 days; Reason: If symptoms return, Further diagnostic work-up, Recheck today's complaints, Continuance of care, Re-evaluation by your physician. Problem is an ongoing problem. Symptoms are unchanged. kdr
--- NOTE | 2020-06-15 17:13 | ER ---
Nurse's Notes [facility] Name: Hiram Tomlinson Age: 79 yrs Sex: Male : 1940 Arrival Date: 06/15/2020 Time: 11:51 Bed 14 Private MD: Diagnosis: Dysphagia;Dysphasia Presentation: 06/15 11:58 Chief complaint: Patient's son or daughter states: "[facility], but after speaking over the phone the SOUND DESIGNER at the [facility] decided patient needed to be seen in ER." General weakness, difficulty speaking, difficulty sleeping, unable to eat/ chew/ swallow and puffiness to R side of face." These symptoms have been reportedly been going on for a month now, and just getting worse over time. Pt believes his symptoms began after bladder surgery back in October 2019 and getting progressively worse. Family is concerned that patient may have had a stroke or series of mini strokes. Coronavirus screen: Client denies travel out of the [place] in the last 14 days. At this time, the client does not indicate any symptoms associated with coronavirus-19. Ebola Screen: Patient denies exposure to infectious person. Patient denies travel to an Ebola-affected area in the 21 days before illness onset. Onset of symptoms was October 2019. 11:58 Method Of Arrival: Ambulatory 11:58 Acuity: BERTRAM 3 Historical: - Allergies: 12:03 No Known Allergies; - PMHx: 12:03 COPD; - Immunization history:: Adult Immunizations up to date. - Social history:: Smoking status: Patient denies any tobacco usage or history of. Screenin:00 Abuse screen: Denies threats or abuse. Denies injuries from another. Nutritional jr10 screening: No deficits noted. Tuberculosis screening: No symptoms or risk factors identified. Fall Risk No fall in past 12 months (0 pts). Secondary diagnosis (15 points) TIA, IV access (20 points). Ambulatory Aid- None/Bed Rest/Nurse Assist (0 pts). Gait- Normal/Bed Rest/Wheelchair (0 pts) Mental Status- Oriented to own ability (0 pts). Assessment: 12:50 VAN Scoring: Arm Drift: Patients demonstrates NO arm weakness. Patient is VAN Negative. jr10 Visual Disturbance: No visual disturbance noted. Aphasia: No aphasia noted. Neglect: No neglect noted. T-PA (Activase) Screening: Contraindications: Other: s/s have been ongoing x6 weeks. General: Appears in no apparent distress. Behavior is calm, cooperative, appropriate for age. Pain: Denies pain. Neuro: Level of Consciousness is awake, alert, obeys commands, Oriented to person, place, time, situation, Appropriate for age Carbon Printer are weak on right Moves all extremities. Gait is steady, normally ambulatory with walker. Speech is slurred, Facial symmetry appears normal, Pupils are PERRLA, Intact Reports difficulty swallowing since 6 weeks weakness Denies blurred vision numbness headache. Cardiovascular: No deficits noted. Denies chest pain, Rhythm is regular. Respiratory: No deficits noted. Airway is patent Respiratory effort is even, unlabored, Respiratory pattern is regular, symmetrical, Breath sounds are clear bilaterally. GI: No deficits noted. : No deficits noted. Derm: No deficits noted. Musculoskeletal: Reports weakness in generalized. Vital Signs: 11:58 BP 126 / 73; Pulse 89; Resp 18; Temp 97.6(TE); Pulse Ox 92% on R/A; Weight 58.51 kg; ss Pain 0/10; 12:57 BP 138 / 62; Pulse 81; Resp 20; Pulse Ox 94% on R/A; jr10 14:10 BP 117 / 63; Pulse 78; Resp 18; Pulse Ox 100% on R/A; jr10 16:34 BP 117 / 77; Pulse 74; Resp 20; Pulse Ox 96% on R/A; jr10 17:29 BP 112 / 86; Pulse 73; Resp 20; Pulse Ox 98% on R/A; Pain 0/10; jr10 12:57 pt has hx of COPD jr10 NIH Stroke Scale Scores: 12:50 NIHSS Score: 1 jr10 ED Course: 11:51 Patient arrived in ED. ds1 12:03 Triage completed. ss 12:03 Arm band placed on right wrist. ss 12:14 Cory Howard MD is Attending Physician. kdr 12:16 Mandy Hopper, TRUDI is Primary Nurse. jr10 12:35 Placed in gown. Bed in low position. Call light in reach. Side rails up X 1. Adult w/ jp3 patient. Verbal reassurance given. cardiac monitor on. Pulse ox on. NIBP on. 12:38 Initial lab(s) drawn, by me, sent to lab. Inserted saline lock: 20 gauge in right jp3 antecubital area, using aseptic technique. Blood collected. Patient maintains SpO2 saturation greater than 95% on room air. 13:37 XRAY Chest (1 view) In Process Unspecified. EDMS 15:15 CT Head Brain wo Cont In Process Unspecified. EDMS 17:12 Kemal Mendoza MD is Referral Physician. kdr 17:29 No provider procedures requiring assistance completed. IV discontinued, bleeding jr10 controlled, No redness/swelling at site. Pressure dressing applied. Administered Medications: No medications were administered Outcome: 17:12 Discharge ordered by . kdr 17:30 Discharged to home ambulatory, with family. jr10 17:30 Condition: good 17:30 Discharge instructions given to patient, family, Instructed on discharge instructions, follow up and referral plans. Demonstrated understanding of instructions, follow-up care. 17:31 Patient left the ED. jr10 NIH Stroke Scale - NIH Stroke Score Date: 06/15/2020 Time: 12:50 Total Score = 1 1a. Level of Consciousness (LOC) - 0(Alert) 1b. Level of Consciousness (LOC) (Year \\T\\ Age) - 0(Both) 1c. LOC Commands (Open \\T\\ Closes Eyes/Acid Purifier) - 0(Both) 2. Best Gaze (Lateral Gaze Paresis) - 0(Normal) 3. Visual Field Loss - 0(No visual loss) 4. Facial Palsy - 0(Normal) 5a. Left Arm: Motor (10-second hold) - 0(No drift) 5b. Right Arm: Motor (10-second hold) - 0(No drift) 6a. Left Leg: Motor (5-second hold - always test supine) - 0(No drift) 6b. Right Leg: Motor (5-second hold - always test supine) - 0(No drift) 7. Limb Ataxia (finger/nose \\T\\ heel/hernandez - test with eyes open) - 0(Absent) 8. Sensory Loss (pinprick arms/legs/face) - 0(Normal) 9. Best Language: Aphasia (description/naming/reading) - 0(No aphasia) 10. Dysarthria (speech clarity - read or repeat words) - 1(Mild to Moderate) 11. Extinction and Inattention (visual/tactile/auditory/spatial/personal) - 0(No abnormality) Initials: jr10 Signatures: Dispatcher [employer] Cory Irby MD MD [facility] Christine Lindsey ds1 Maryanne Hidalgo RN RN ss Jose Raul Limon jp3 Mandy Hopper RN RN jr10
[2020-06-15 17:49] VITALS: TEMP 97.6
[2020-06-15 17:55] VITALS: BP 112/86; O2SAT 98
== END 2020-06-15 17:31 | disposition home or self-care (01) ==
LOC: ER 11:47
DX: R47.02 Dysphasia (principal); R53.1 Weakness; J44.9 Chronic obstructive pulmonary disease, unspecified
CPT/HCPCS: 36415; 70450; 71045; 80048; 80076; 83735; 83880; 84484; 85025; 85610; 93005; 99285

== ENCOUNTER 2020-08-18 07:08 | Day surgery (SDC) | payer OTHER ==
[2020-08-18] MEDS ORDERED: Ringers Lactate 1,000 ML IV ONE (07:35)
[2020-08-18 07:44] VITALS: TEMP 97.4
[2020-08-18] MEDS ORDERED: CEFAZOLIN/SWI 1gm 1 GM/10 ML SYR ONE (08:04)
--- NOTE | 2020-08-18 08:49 | ENDO RPT ---
[address], [address] EGD WITH PEG PROCEDURE REPORT EXAM DATE: 08/18/2020 PATIENT NAME: Hiram Tomlinson MR #: [id number] BIRTHDATE: 1940 ATTENDING: Florian Houser Dr STATUS: outpatient MOBILE SECURITY ARCHITECT: Tray Funes CST and Arti Louis RN INDICATIONS: The patient is a 79 yr old Male here for an EGD with PEG due to dysphagia, history of ALS, and weight loss PROCEDURE PERFORMED: EGD with PEG placement MEDICATIONS: Per Anesthesia. TOPICAL ANESTHETIC: none CONSENT: The patient understands the risks and benefits of the procedure and understands that these risks include, but are not limited to: sedation, allergic reaction, infection, perforation and/or bleeding. Alternative means of evaluation and treatment include, among others: physical exam, x-rays, and/or surgical intervention. The patient elects to proceed with this endoscopic procedure. DESCRIPTION OF PROCEDURE: During intra-op preparation period all mechanical medical equipment was checked for proper function. Hand hygiene and appropriate measures for infection prevention was taken. After the risks, benefits and alternatives of the procedure were thoroughly explained, Informed consent was verified, confirmed and timeout was successfully executed by the treatment team. The patient was anesthetized with topical anesthesia and the EG-[id number] ([id number]) endoscope was introduced through the mouth and advanced to the third portion of the duodenum. The instrument was slowly withdrawn as the mucosa was fully examined. The upper, middle, and distal third of the esophagus were carefully inspected and no abnormalities were noted. The z-line was well seen at the GEJ. The endoscope was pushed into the fundus which was normal including a retroflexed view. The antrum, first and second part of the duodenum were unremarkable. The stomach was then inflated with air, and by a combination of transillumination and manual palpation, the site for the gastrostomy tube placement was selected and marked on the anterior abdominal wall. The skin of the anterior abdomen was surgically prepped and draped with sterile towels. Utilizing strict sterile technique, the selected site was then anesthetized with 1% xylocaine by injection into the skin and subcutaneous tissue. A 1 cm incision was made through the skin and subcutaneous tissue, and the needle/cannula assembly was then passed through the abdominal wall and through the anterior wall of the stomach, maintaining visualization with the endoscope. A snare device previously placed through the instrument channel was then opened and placed around the cannula, the needle was removed, and the insertion wire was passed through the cannula and into the stomach lumen. The snare was then loosened from the cannula, and repositioned to snare the insertion wire. The snare was then pulled up to the endoscope distal tip, and the scope was then withdrawn bringing with it the snare and insertion wire. The insertion wire was then released from the snare, and the PEG PUSH gastrostomy tube placed over the guidewire. Using the push technique, the tube was then pushed into place over the insertion wire at the abdominal wall end. The tube insertion site was then cleansed once again, and the external bolster was placed over the tube to secure it to the abdominal wall. A sterile dressing was then applied, and the procedure terminated. Retroflexed views revealed no abnormalities. The gastroscope was then slowly withdrawn and removed. ADVERSE EVENT: There were no complications. IMPRESSIONS: 1. Status post 20 Fr percutaneous endoscopic gastrostomy 2. Normal EGD RECOMMENDATIONS: begin PEG use in 3 hours REPEAT EXAM: Florian Houser Dr eSigned: Florian Houser Dr 08/18/2020 8:48 AM cc: Kemal Mendoza CPT CODES: ICD9 CODES: PATIENT NAME: Hiram Tomlinson MR#: [id number]
[2020-08-18 09:50] VITALS: BP 147/61; O2SAT 95
== END 2020-08-18 09:30 | disposition home or self-care (01) ==
LOC: OR 07:08
PROVIDERS: ATTEND Internal Medicine Gastroenterology
PROC: 0DH63UZ Insertion of Feeding Device into Stomach, Percutaneous Approach (ICD-10-PCS; principal; 2020-08-18 08:00)
DX: R13.10 Dysphagia, unspecified (principal); G12.21 Amyotrophic lateral sclerosis; R63.4 Abnormal weight loss; Z68.1 Body mass index [BMI] 19.9 or less, adult; J44.9 Chronic obstructive pulmonary disease, unspecified; Z87.891 Personal history of nicotine dependence; Z20.828 Contact with and (suspected) exposure to other viral communicable diseases
CPT/HCPCS: 43246; U0002; J0690; J7120

== ENCOUNTER 2020-09-02 10:55 | Inpatient (IN) | payer OTHER ==
[2020-09-02] MEDS ORDERED: LEVALBUTEROL 1.25 MG/3 ML NEB ONE (12:46)
[2020-09-02] MEDS ORDERED: FUROSEMIDE 40 MG/4 ML VIAL ONE ×2 (12:46→13:01)
[2020-09-02 12:59] LABS: Absolute Lymphocytes (CBC) 1.3 K/uL (0.7-4.9); Basophils % 0.8 % (0-1.3); Hematocrit 39.4 % (39.6-49.0); Lymphocytes % 9.7 % (15.3-44.8); RBC Red Blood Cell Count 4.38 M/uL (4.33-5.43)
[2020-09-02 13:08] LABS: Protime INR 0.92
--- NOTE | 2020-09-02 13:11 | RAD REPORT ---
EXAM DESCRIPTION: RAD - Chest Single View - 09/02/2020 12:42 pm CLINICAL HISTORY: CONGESTION COMPARISON: Portable June 15, 2020 TECHNIQUE: AP portable chest image was obtained 09/02/2020 12:42 pm . FINDINGS: No dense mass or consolidations seen. Granuloma present at the right base. Patient has a b aseline chronic interstitial pattern. This may be very fractionally increased over the comparison. He art size well within normal limits. Trachea is midline. No measurable pleural effusion and no pneumot horax. No acute bony abnormality seen. No acute aortic findings suspected. IMPRESSION: Chronic interstitial lung pattern fractionally increased over comparison. Interval change is minimal but could reflect developing edema. Follow-up can be obtained as warranted .
[2020-09-02 13:23] LABS: ALT/SGPT 70 U/L (12-78); AST/SGOT 34 U/L (15-37); Albumin 2.8 g/dL (3.4-5.0); Alkaline Phosphatase 155 U/L (45-117); BUN Blood Urea Nitrogen 37 mg/dL (7-18); Bicarbonate 34 mmol/L (21-32); Bilirubin Direct 0.1 mg/dL (0-0.2); Bilirubin Total 0.4 mg/dL (0.2-1.0); Glucose Level 108 mg/dL (74-106); Magnesium 2.5 mg/dL (1.8-2.4); NT PRO-BNP 254 pg/mL (<450); Potassium 4.3 mmol/L (3.5-5.1); Protein, Total 6.8 g/dL (6.4-8.2); Sodium Level 139 mmol/L (136-145); Troponin (Emerg Dept Use Only) < 0.02 ng/mL (0.0-0.045)
[2020-09-02] MEDS ORDERED: ONDANSETRON 4 MG/2 ML VIAL IV PRN (15:12)
[2020-09-02] MEDS ORDERED: ACETAMINOPHEN 500 MG TAB PO PRN (15:12)
--- NOTE | 2020-09-02 15:31 | EDPHYS ---
Physician Documentation [facility] Name: Hiram Tomlinson Age: 79 yrs Sex: Male : 1940 Arrival Date: 09/02/2020 Time: 10:58 Bed 5 Private MD: ED Physician Cory Howard HPI: 09/02 19:24 This 79 yrs old Male presents to ER via Ambulatory with complaints of Feet kdr Swelling. 19:24 The patient presents with decreased range of motion, swelling. The complaints affect kdr the lateral aspect of left calf, left lateral ankle, lateral aspect of left foot, left calf, left Achilles, left heel, medial aspect of left calf, left medial ankle, medial aspect of left foot, left hernandez, anterior aspect of left ankle and dorsum of left foot, lateral aspect of right calf, right ankle, lateral aspect of right foot, right calf, right Achilles, right heel, medial aspect of right calf, medial aspect of right foot, right hernandez, anterior aspect of right ankle and dorsum of right foot. Context: The problem was sustained at home, resulted from an unknown cause, the patient can fully bear weight, the patient is able to ambulate, with mild difficulty. Onset: The symptoms/episode began/occurred gradually, 1 week(s) ago. Modifying factors: The symptoms are alleviated by nothing. the symptoms are aggravated by weight bearing. Associated signs and symptoms: The patient has no apparent associated signs or symptoms. Treatment prior to arrival includes: no previous treatment. Severity of symptoms: At their worst the symptoms were moderate, in the emergency department the symptoms are unchanged. The patient has not experienced similar symptoms in the past. The patient has not recently seen a physician. Historical: - Allergies: 11:15 No Known Allergies; ss - PMHx: 11:15 COPD; ALS; ss - PSHx: 11:15 Peg tube; ss - Immunization history:: Adult Immunizations up to date. - Social history:: Smoking status: Patient/guardian denies using tobacco, the patient reports quitting approximately 17 years ago. ROS: 19:24 Constitutional: Negative for fever, chills, and weight loss, Eyes: Negative for injury, kdr pain, redness, and discharge, Neck: Negative for injury, pain, and swelling, Cardiovascular: Negative for chest pain, palpitations, and edema, Respiratory: Negative for shortness of breath, cough, wheezing, and pleuritic chest pain, Abdomen/GI: Negative for abdominal pain, nausea, vomiting, diarrhea, and constipation, Back: Negative for injury and pain, : Negative for injury, bleeding, discharge, and swelling, Skin: Negative for injury, rash, and discoloration, Neuro: Negative for headache, weakness, numbness, tingling, and seizure activity. Psych: Negative for depression, anxiety, suicide ideation, homicidal ideation, and hallucinations, Allergy/Immunology: Negative for hives, rash, and allergies, Endocrine: Negative for neck swelling, polydipsia, polyuria, polyphagia, and marked weight changes, Hematologic/Lymphatic: Negative for swollen nodes, abnormal bleeding, and unusual bruising. 19:24 MS/extremity: Positive for swelling, tenderness, of the right leg and left leg. Exam: 19:24 Constitutional: This is a well developed, well nourished patient who is awake, alert, kdr and in no acute distress. Head/Face: Normocephalic, atraumatic. Eyes: Pupils equal round and reactive to light, extra-ocular motions intact. Lids and lashes normal. Conjunctiva and sclera are non-icteric and not injected. Cornea within normal limits. Periorbital areas with no swelling, redness, or edema. Neck: Trachea midline, no thyromegaly or masses palpated, and no cervical lymphadenopathy. Supple, full range of motion without nuchal rigidity, or vertebral point tenderness. No Meningismus. Chest/axilla: Normal chest wall appearance and motion. Nontender with no deformity. No lesions are appreciated. Cardiovascular: Regular rate and rhythm with a normal S1 and S2. No gallops, murmurs, or rubs. Normal PMI, no JVD. No pulse deficits. Respiratory: Lungs have equal breath sounds bilaterally, clear to auscultation and percussion. No rales, rhonchi or wheezes noted. No increased work of breathing, no retractions or nasal flaring. Abdomen/GI: Soft, non-tender, with normal bowel sounds. No distension or tympany. No guarding or rebound. No evidence of tenderness throughout. Back: No spinal tenderness. No costovertebral tenderness. Full range of motion. Skin: Warm, dry with normal turgor. Normal color with no rashes, no lesions, and no evidence of cellulitis. Neuro: Awake and alert, GCS 15, oriented to person, place, time, and situation. Cranial nerves II-XII grossly intact. Motor strength 5/5 in all extremities. Sensory grossly intact. Cerebellar exam normal. Normal gait. Psych: Awake, alert, with orientation to person, place and time. Behavior, mood, and affect are within normal limits. 19:24 Musculoskeletal/extremity: Extremities: ROM: intact in all extremities, Circulation is intact in all extremities. Sensation intact. Weight bearing: can bear weight with assistance only, Calves: have equal circumference, Edema to mid-calf on both legs. Vital Signs: 11:11 BP 140 / 70; Pulse 97; Resp 20; Temp 98.3(TE); Pulse Ox 90% on R/A; Weight 53.07 kg; ss Height 5 ft. 7 in. (170.18 cm); Pain 2/10; 13:02 BP 159 / 73; Pulse 99; Resp 18; Pulse Ox 100% on R/A; hb 14:00 BP 132 / 87; Pulse 92; Resp 18; Pulse Ox 91% on R/A; em 15:00 BP 131 / 80; Pulse 97; Resp 18; Pulse Ox 91% on R/A; em 16:00 BP 132 / 87; Pulse 92; Resp 16; Pulse Ox 92% on R/A; em 11:11 Body Mass Index 18.32 (53.07 kg, 170.18 cm) ss MDM: 15:30 Patient medically screened. kdr 19:24 Data reviewed: vital signs, nurses notes, lab test result(s), radiologic studies. kdr Counseling: I had a detailed discussion with the patient and/or guardian regarding: the historical points, exam findings, and any diagnostic results supporting the discharge/admit diagnosis, lab results, radiology results, the need for further work-up and treatment in the hospital. 19:27 ED course: The patient was reluctant to be admitted but asked to remain here and not be kdr transferred to [facility] . 09/02 12:28 Order name: Basic Metabolic Panel; Complete Time: 14:36 kdr 09/02 12:28 Order name: CBC with Diff; Complete Time: 14:36 kdr 09/02 12:28 Order name: LFT's; Complete Time: 14:36 kdr 09/02 12:28 Order name: Magnesium; Complete Time: 14:36 kdr 09/02 12:28 Order name: NT PRO-BNP; Complete Time: 14:36 kdr 09/02 12:28 Order name: PT-INR; Complete Time: 14:36 kdr 09/02 12:28 Order name: Troponin (emerg Dept Use Only); Complete Time: 14:36 kdr 09/02 15:15 Order name: CBC with Automated Diff EDMS 09/02 15:15 Order name: CBC with Automated Diff EDMS 09/02 15:15 Order name: Comprehensive Metabolic Panel EDMS 09/02 15:15 Order name: Comprehensive Metabolic Panel EDMS 09/02 15:15 Order name: Magnesium EDMS 09/02 15:15 Order name: Magnesium EDMS 09/02 15:15 Order name: NT PRO-BNP EDMS 09/02 12:28 Order name: XRAY Chest (1 view); Complete Time: 14:36 kdr 09/02 12:28 Order name: EKG; Complete Time: 12:29 kdr 09/02 12:28 Order name: Cardiac monitoring; Complete Time: 12:30 kdr 09/02 12:28 Order name: EKG - Nurse/Tech; Complete Time: 12:51 kdr 09/02 12:28 Order name: IV Saline Lock; Complete Time: 12:51 kdr 09/02 12:28 Order name: Labs collected and sent; Complete Time: 12:51 kdr 09/02 12:28 Order name: O2 Per Protocol; Complete Time: 12:30 kdr 09/02 12:28 Order name: O2 Sat Monitoring; Complete Time: 12:30 kdr 09/02 15:12 Order name: Extrem Venous W Compress Wilder EDCA 09/02 15:15 Order name: Heart Healthy EDMS 09/02 15:15 Order name: Echo with Doppler EDMS 09/02 15:15 Order name: NT PRO-BNP EDMS 09/02 15:15 Order name: Phosphorus EDMS 09/02 15:15 Order name: Phosphorus EDMS Administered Medications: 12:45 Drug: Xopenex (3) 1.25 mg Route: Inhalation; em 12:50 Drug: Lasix 40 mg Route: IVP; Site: right forearm; em Disposition: 09/02/20 15:30 Hospitalization ordered by Diamond Morales for Observation. Preliminary diagnosis is Right dsided heart failure. - Bed requested for Telemetry/MedSurg (observation). - Status is Observation. em - Condition is Stable. - Problem is an acute exacerbation. - Symptoms have improved. Signatures: Dispatcher [employer] Cory Irby MD MD [facility] Terry Abarca RN RN em Maryanne Hidalgo RN RN Torie Urbina Corrections: (The following items were deleted from the chart) 15:54 15:30 Hospitalization Ordered by Diamond Morales MD for Observation. Preliminary eb diagnosis is Right dsided heart failure. Bed requested for Telemetry/MedSurg (observation). Status is Observation. Condition is Stable. Problem is an acute exacerbation. Symptoms have improved. [facility] 17:04 15:54 09/02/2020 15:30 Hospitalization Ordered by Diamond Morales MD for Observation. em Preliminary diagnosis is Right dsided heart failure. Bed requested for Telemetry/MedSurg (observation). Status is Observation. Condition is Stable. Problem is an acute exacerbation. Symptoms have improved. eb
--- NOTE | 2020-09-02 15:31 | ER ---
Nurse's Notes [facility] Name: Hiram Tomlinson Age: 79 yrs Sex: Male : 1940 Arrival Date: 09/02/2020 Time: 10:58 Bed 5 Private MD: Diagnosis: Right dsided heart failure Presentation: 09/02 11:11 Chief complaint: Patient's son or daughter states: feet swelling x 1 week. Home Health ss nurse recommended to come to ER for further evaluation. Coronavirus screen: Client denies travel out of the [place] in the last 14 days. Pt has a chronic cough. Ebola Screen: Patient denies exposure to infectious person. Patient denies travel to an Ebola-affected area in the 21 days before illness onset. Initial Sepsis Screen: Does the patient meet any 2 criteria? No. Patient's initial sepsis screen is negative. Does the patient have a suspected source of infection? No. Patient's initial sepsis screen is negative. Risk Assessment: Do you want to hurt yourself or someone else? Patient reports no desire to harm self or others. Onset of symptoms was August 26, 2020. 11:11 Method Of Arrival: Ambulatory ss 11:11 Acuity: BERTRAM 3 ss Historical: - Allergies: 11:15 No Known Allergies; ss - PMHx: 11:15 COPD; ALS; ss - PSHx: 11:15 Peg tube; ss - Immunization history:: Adult Immunizations up to date. - Social history:: Smoking status: Patient/guardian denies using tobacco, the patient reports quitting approximately 17 years ago. Screenin:04 Abuse screen: Denies threats or abuse. Denies injuries from another. Nutritional hb screening: No deficits noted. Tuberculosis screening: No symptoms or risk factors identified. Fall Risk Total Kaye Fall Scale indicates Low Risk Score (25-44 pts). Fall prevention measures have been instituted. Side Rails Up X 2 Frequent Obs/Assesments occuring Family Present and informed to notify staff if they need to leave bedside As available Patient and Family Educated on Fall Prevention Program and strategies. Assessment: 11:16 Reassessment: Recently diagnosed with ALS on July 27. ss 12:40 General: Appears in no apparent distress. uncomfortable, Behavior is calm, cooperative, em appropriate for age. Pain: Denies pain. Neuro: Level of Consciousness is awake, alert, obeys commands, Oriented to person, place, time, situation, Appropriate for age Reports difficulty swallowing. Cardiovascular: Capillary refill < 3 seconds Patient's skin is warm and dry. Respiratory: Airway is patent Respiratory effort is even, Respiratory pattern is tachypnea. GI: PEG tube in place, clamped. Site clean. Patient currently denies nausea, vomiting. Derm: Skin is intact, is fragile, is thin, Skin is pink, warm \T\ dry. Musculoskeletal: Capillary refill < 3 seconds, Range of motion: intact in all extremities. 14:00 Reassessment: Patient appears in no apparent distress at this time. Patient and/or em family updated on plan of care and expected duration. Pain level reassessed. Patient is alert, oriented x 3, equal unlabored respirations, skin warm/dry/pink. 15:00 Reassessment: Patient appears in no apparent distress at this time. Patient and/or em family updated on plan of care and expected duration. Pain level reassessed. Patient is alert, oriented x 3, equal unlabored respirations, skin warm/dry/pink. 16:43 Reassessment: Patient appears in no apparent distress at this time. Patient and/or em family updated on plan of care and expected duration. Pain level reassessed. Patient is alert, oriented x 3, equal unlabored respirations, skin warm/dry/pink. Vital Signs: 11:11 BP 140 / 70; Pulse 97; Resp 20; Temp 98.3(TE); Pulse Ox 90% on R/A; Weight 53.07 kg; ss Height 5 ft. 7 in. (170.18 cm); Pain 2/10; 13:02 BP 159 / 73; Pulse 99; Resp 18; Pulse Ox 100% on R/A; hb 14:00 BP 132 / 87; Pulse 92; Resp 18; Pulse Ox 91% on R/A; em 15:00 BP 131 / 80; Pulse 97; Resp 18; Pulse Ox 91% on R/A; em 16:00 BP 132 / 87; Pulse 92; Resp 16; Pulse Ox 92% on R/A; em 11:11 Body Mass Index 18.32 (53.07 kg, 170.18 cm) ED Course: 10:58 Patient arrived in ED. bp1 11:14 Triage completed. ss 11:15 Arm band placed on right wrist. ss 12:04 Patient has correct armband on for positive identification. Bed in low position. Call light in reach. Side rails up X 1. 12:06 Cory Howard MD is Attending Physician. kdr 12:29 eTrry Abarca, RN is Primary Nurse. em 12:40 EKG done, by ED staff, reviewed by Cory Howard MD. 3 12:42 XRAY Chest (1 view) In Process Unspecified. EDMS 12:45 Initial lab(s) drawn, by me, sent to lab. Inserted saline lock: 20 gauge in right em forearm, using aseptic technique. Blood collected. 15:28 Diamond Morales MD is Hospitalizing Provider. kdr 15:44 called [facility] Notification department at [phone] and notified of patient's eb admission to this facility/ notification ID number is [id number]. 16:57 No provider procedures requiring assistance completed. Patient admitted, IV remains in em place. Administered Medications: 12:45 Drug: Xopenex (3) 1.25 mg Route: Inhalation; em 12:50 Drug: Lasix 40 mg Route: IVP; Site: right forearm; em Outcome: 15:30 Decision to Hospitalize by Provider. kdr 16:57 Admitted to Tele accompanied by tech, family with patient, via stretcher, room 230, on em monitor, with chart, Report called to TRUDI Shah 16:57 Condition: improved 16:57 Instructed on the need for admit, Demonstrated understanding of instructions. 17:04 Patient left the ED. em Signatures: Dispatcher [employer] EDMN Cory Howard MD MD [facility] Terry Abarca, TRUDI BRUSH Maryanne Hidalgo RN RN Concetta Galvan RN RN Kaley Douglas 3 Torie Urbina Yajaira Mendoza
--- NOTE | 2020-09-02 16:57 | RAD REPORT ---
EXAM DESCRIPTION: US - Extrem Venous W Compress Wilder - 09/02/2020 4:23 pm CLINICAL HISTORY: BLE edema COMPARISON: None. TECHNIQUE: Real-time sonographic evaluation of the bilateral lower extremity common femoral, superfi cial femoral, popliteal and posterior tibial veins was performed. FINDINGS: Normal compressibility, flow augmentation, phasic flow and spontaneous flow are identified in the left and right lower extremity common femoral, superficial femoral, popliteal and posterior t ibial veins. No intraluminal filling defects seen. IMPRESSION: No DVT in either lower extremity.
[2020-09-02] MEDS ORDERED: FUROSEMIDE 20 MG/ 2ML VIAL IV SCH (17:00)
[2020-09-02] MEDS ORDERED: ALBUMIN HUMAN 25% 12.5 GM, FUROSEMIDE 100 MG in NA CHLORIDE 0.9% 40 ML IV ONE (17:00)
[2020-09-02] MEDS: ALBUTEROL 2.5 MG/3 ML NEB SOL NEB SCH ×2 (17:34→20:00)
[2020-09-02] MEDS: IPRATROPIUM BROM 0.5MG/2.5ML NEB SCH ×2 (17:34→20:00)
[2020-09-02 17:51] VITALS: BMI 17.8
[2020-09-02] MEDS ORDERED: PNEUMOCOCCAL VACCINE 0.5 ML IMVAC ONE (18:00)
[2020-09-02] MEDS: JEVITY 1.5 CAL LIQUID 1,000 ML BOT FT SCH (18:40)
[2020-09-02] MEDS: ENOXAPARIN 40 MG/0.4 ML SQ SCH (18:41)
[2020-09-02] MEDS: METHYLPREDNISOLONE 125 MG INJ IV SCH (18:42)
[2020-09-02] MEDS: JUVEN PACKET PO SCH ×2 (20:00→20:50)
--- NOTE | 2020-09-02 20:37 | CON ---
Reason For Consultation: Consultation called because the patient was diagnosed with Geeta Gehrig's dis ease. History Of Present Illness: Mr. 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 He has had a significant amount of weight loss and had a PEG tube placed just a few weeks ago and started feeding at home. His weight w as low of 113 pounds and as he was being fed by tube, his weight did increase about 116 and up to 117 and actually from 116 to 117 over night. He did have some more shortness of breath and significant swelling over the week in his feet and ankles. He came to [facility] where a chest x-ray robbins ggested a COPD pattern with superimposed edema suggestive of some volume overload. He was treated wi th Lasix in the emergency room began for his diuresis and has had moderate so far decrease in foot sw elling and ankle swelling. Cognitively, he remains intact and has had no focal findings. He has sev ere dysphonia and is unable to clear secretions well. The patient's family said he did have a suctio n at home, but has not been using it effectively. Past Medical History: As indicated. Allergies: NO KNOWN DRUG ALLERGIES. Past Surgical History: Recent PEG tube placement. Social History: Smoked in the past, quit about 17 years ago. No alcohol use. Medications: Rilutek at home, Flomax 0.4 mg at night, Lasix 20 mg every 8 hours IV, aspirin 81 mg da aidee, albuterol nebulizer, Sergo twice daily, and Zofran as needed. Review of Systems: He has a very poor cough with some mild shortness of breath, swelling in the legs, diffuse weakness a nd stiffness in the legs more than arms. Otherwise, no other positives on a 10-point systems review. Physical Examination: Vital Signs: Blood pressure 131 up to 148/70 to 87, pulse ranged 82 to 99, respiratory rate 14 to 18 , temperature 97.8, weight 117 pounds, height 5 feet 7 inches, BMI 18.3. General: Mr. Tomlinson is resting in bed. He is normocephalic, atraumatic. Sclerae anicteric. Oroph arynx is moist and pink. Neck: Supple. Chest: Clear. He has some decreased breath sounds actually bilaterally. Heart: Regular. He does have 2+ pitting edema in the feet and ankles. No edema noted in upper extr emities. Neurologic: Motor examination, upper extremities, he has 4/5 with increased tone; lower extremities around 3 to 4/5 in both right and left, proximally and distally. Sensory exam intact to light touch, pinprick, temperature. Reflexes are brisk in the upper and lower extremities. For gait, he require s moderate to max assist to person assistance and transfers also, two-person assistance. Laboratory Studies: White blood cell count 13.4, hemoglobin 13.1, hematocrit 39.4, platelets 270. I NR 0.9. Chemistries show BUN elevated at 37, carbon dioxide 34, glucose 108, calcium 8.4, magnesium 2.5, alkaline phosphatase 155. Assessment: Mr. Tomlinson is an 79-year-old patient with Geeta Gehrig's disease, chronic obstructive pul monary disease with congestive heart failure exacerbation. He is now on diuresis. He does have maln utrition and is eating by percutaneous endoscopic gastrostomy tube. He does have a risk for stroke, although he is medicated by aspirin 81 mg daily. He does have risk for deep vein thrombosis and he i s on Lovenox. Plan: 1.Continue current medication and treatment regimen. 2.May restart his Rilutek for ALS. 3.Continue his Flomax. 4.The patient was told about range of motion exercises in the feet and legs to reduce swelling. May also consider VALENTÍN hose when the patient is up with his legs dependent during the day. He may call Dr. Mendoza's office next week after his discharge for a followup appointment within a month. CANDIDA/RENETTA Voice ID: [id number] Report ID: [id number]
[2020-09-02] MEDS: TAMSULOSIN 0.4 MG SR CAP PO SCH (20:50)
[2020-09-02] MEDS ORDERED: ALBUMIN HUMAN 25% 12.5 GM, FUROSEMIDE 100 MG in NA CHLORIDE 0.9% 40 ML IV SCH (21:00)
[2020-09-03] MEDS: METHYLPREDNISOLONE 125 MG INJ IV SCH ×4 (00:15→17:09)
[2020-09-03] MEDS: JEVITY 1.5 CAL LIQUID 1,000 ML BOT FT SCH ×6 (00:19→23:01)
[2020-09-03] MEDS: IPRATROPIUM BROM 0.5MG/2.5ML NEB SCH ×4 (01:25→19:40)
[2020-09-03] MEDS: ALBUTEROL 2.5 MG/3 ML NEB SOL NEB SCH ×4 (01:25→19:40)
[2020-09-03 06:21] LABS: Absolute Lymphocytes (CBC) 0.5 K/uL (0.7-4.9); Basophils % 0.1 % (0-1.3); Hematocrit 38.8 % (39.6-49.0); Lymphocytes % 7.7 % (15.3-44.8); RBC Red Blood Cell Count 4.33 M/uL (4.33-5.43)
[2020-09-03 06:52] LABS: Bilirubin Total 0.5 mg/dL (0.2-1.0); Magnesium 2.7 mg/dL (1.8-2.4); Phosphorus 4.5 mg/dL (2.5-4.9); Potassium 3.5 mmol/L (3.5-5.1); Protein, Total 6.8 g/dL (6.4-8.2); Thyroid Stimulating Hormone 0.439 uIU/mL (0.360-3.740)
[2020-09-03] MEDS ORDERED: POTASSIUM 25 MEQ EFFERV TAB PO ONE (07:58)
--- NOTE | 2020-09-03 09:33 | EKG ---
Test Date: 2020-09-02 Test Time: 12:40:17 Automatic Glove Turner And Former: VERONICA MEASUREMENT RESULTS: Intervals: Rate: 88 [place]: 134 QRSD: 128 QT: 382 QTc: 462 [place]: P: 71 [place]: 134 QRS: 53 T: 60 INTERPRETIVE STATEMENTS: Normal sinus rhythm Right bundle branch block Abnormal ECG Compared to ECG 06/15/2020 13:53:26 No significant changes Electronically Signed On 09-03-20 09:31:02 CDT by Endy Partida
[2020-09-03] MEDS: ENOXAPARIN 40 MG/0.4 ML SQ SCH (09:54)
[2020-09-03] MEDS: ASPIRIN EC 81 MG TAB PO SCH (09:54)
[2020-09-03] MEDS: FUROSEMIDE 20 MG/ 2ML VIAL IV SCH ×2 (09:55→17:10)
[2020-09-03] MEDS: JUVEN PACKET PO SCH ×2 (09:56→21:15)
[2020-09-03 12:36] LABS: Blood Morphology Comment NOT SEEN (NOT SEEN); Platelet Estimate ADEQ
[2020-09-03] MEDS: TAMSULOSIN 0.4 MG SR CAP PO SCH (21:14)
[2020-09-04] MEDS: METHYLPREDNISOLONE 125 MG INJ IV SCH ×2 (00:09→06:38)
[2020-09-04] MEDS: FUROSEMIDE 20 MG/ 2ML VIAL IV SCH ×2 (00:09→08:10)
[2020-09-04] MEDS: IPRATROPIUM BROM 0.5MG/2.5ML NEB SCH ×3 (01:15→13:52)
[2020-09-04] MEDS: ALBUTEROL 2.5 MG/3 ML NEB SOL NEB SCH ×3 (01:15→13:52)
[2020-09-04] MEDS: JEVITY 1.5 CAL LIQUID 1,000 ML BOT FT SCH ×4 (03:00→15:45)
[2020-09-04 06:18] LABS: Potassium 3.2 mmol/L (3.5-5.1)
[2020-09-04] MEDS: ASPIRIN EC 81 MG TAB PO SCH (08:09)
[2020-09-04] MEDS: ENOXAPARIN 40 MG/0.4 ML SQ SCH (08:09)
[2020-09-04] MEDS: JUVEN PACKET PO SCH (08:12)
--- NOTE | 2020-09-04 08:19 | P.HP ---
Certification for Inpatient Patient admitted to: Inpatient With expected LOS: >2 Midnights Patient will require the following post-hospital care: None Practitioner: I am a practitioner with admitting privileges, knowledge of patient current condition, hospital course, and medical plan of care. Services: Services provided to patient in accordance with Admission requirements found in Title 42 Section 412.3 of the Code of Federal Regulations Patient History Date of Service: 09/02/20 Reason for admission: Acute CHF exacerbation History of Present Illness: Patient is an 79-year-old gentleman who came to the hospital with shortness of breath. Patient also had lower extremity edema. Patient has had increased secretions in the upper airway. He has had ALS and his if muscles of down weaker to the point he needed a PEG tube placed. He has been following up with neurologist, Dr. Mendoza, along with Neurology at [facility] for ALS. Patient has notice that since he increased his tube feedings his lower extremity edema has increased quite significantly. Patient does not have any other symptoms except for the occasional shortness of breath. The lower extremity edema was the most concerning symptom in patient had an outpatient Doppler ordered which we went ahead and ordered in the emergency room which came back negative. Echocardiogram is also pending. Patient has a history of anasarca and we need to make sure patient does not have right-sided heart failure secondary to his chronic COPD. At this time, patient be admitted to the hospital for further evaluation. Allergies No Known Allergies Allergy (Verified 09/02/20 17:41) Home Medications: Albuterol Sulfate [Proair Respiclick] 90 mcg IH Q4HP PRN 08/17/20 Budesonide/Formoterol Fumarate [Budesonide-Formoterol 160-4.5] 10.2 gm IH BID 08/17/20 Riluzole 50 mg FT BID 08/17/20 Tamsulosin HCl 0.4 mg PO BID 08/17/20 predniSONE [Deltasone] 10 mg FT DAILY 08/17/20 Guaifenesin/Dextromethorphan [Mucinex Fast-Max Dm Max Liquid] 20 ml FT Q4HP PRN 09/02/20 Jevity 1.5 Nima [Jevity 1.5 Nima*] 360 ml FT 5XD 09/02/20 - Past Medical/Surgical History Has patient received pneumonia vaccine in the past: No Diabetic: No -: ALS -: COPD -: PEG 08/18/20 - Family History Mother History Unknown: Yes - Social History Smoking Status: Former smoker Alcohol use: No CD- Drugs: No Caffeine use: No Place of Residence: Home Review of Systems 10-point ROS is otherwise unremarkable Physical Examination - Vital Signs Temperature: 97.6 F Blood Pressure: 117/59 Pulse: 88 Respirations: 18 Pulse Ox (%): 94 - Physical Exam General: Alert, In no apparent distress, Oriented x3 HEENT: Atraumatic, PERRLA, Mucous membr. moist/pink, EOMI, Sclerae nonicteric Neck: Supple, 2+ carotid pulse no bruit, No LAD, Without JVD or thyroid abnormality Respiratory: Diminished, Crackles/rales, Rhonchi/gurgles Cardiovascular: Regular rate/rhythm, Normal S1 S2, Systolic murmur Gastrointestinal: Normal bowel sounds, Soft and benign, Non-distended, No tenderness Musculoskeletal: No tenderness, Swelling Integumentary: Tenderness/swelling Neurological: Normal gait, Normal speech, Normal strength at 5/5 x4 extr, Normal tone, Sensation intact, Cranial nerves 3-12 intact, Normal affect Lymphatics: No axilla or inguinal lymphadenopathy Assessment & Plan - Problems (Diagnosis) (1) Bilateral lower extremity edema Current Visit: Yes Status: Acute (2) Acute right-sided heart failure Current Visit: Yes Status: Acute (3) Hypoalbuminemia Current Visit: Yes Status: Acute (4) ALS (amyotrophic lateral sclerosis) Current Visit: Yes Status: Acute (5) History of COPD Current Visit: Yes Status: Acute - Plan Plan: 1. Will go ahead and diurese patient with an albumin/Lasix drip for 1 bag. Patient has hypoalbuminemia and significant lower extremity edema so this should benefit him. Will try to get a stat echocardiogram. Doppler of the lower extremity was negative. Cardiology consultation as well. Patient BNP is normal and patient did not have any significant JVP some not short to what degree he may have congestive heart failure especially right-sided secondary to his COPD. Echocardiogram she will benefit us in deciding how aggressively to treat him going for. This could be related to the increase tube feeds as well. However, he should be able to secrete the excess fluid if nerves and was functioning properly. Will go ahead and try to adjust his medications during his hospitalization. He is on steroids as well but he takes a low-dose of this. He has been on this chronically and has not had edema up until this time. Patient will get further studies and possible discharge home or the next 48-72 hr. Discharge Plan: Home Plan to discharge in: Greater than 2 days - Advance Directives Does patient have a Living Will: Yes Does patient have a Durable POA for Healthcare: Yes - Code Status/Comfort Care Code Status Assessed: Yes Code Status: Full Code Critical Care: No Time Spent Managing PTS Care (In Minutes): 45
--- NOTE | 2020-09-04 08:25 | P.PN ---
Subjective Date of Service: 09/03/20 Subjective: No new changes, No C/O voiced, Improving Patient continues to improve. Planning to get an Echo in the AM prior to discharge. Awaiting Cardiology input. Continue with diuresing. Review of Systems 10-point ROS is otherwise unremarkable Physical Examination - Vital Signs Temperature: 97.6 F Blood Pressure: 117/59 Pulse: 88 Respirations: 18 Pulse Ox (%): 94 - Physical Exam General: Alert, In no apparent distress, Oriented x3 Respiratory: Diminished, Crackles/rales Cardiovascular: Regular rate/rhythm, Normal S1 S2, No murmurs Gastrointestinal: Normal bowel sounds, Soft and benign, Non-distended, No tenderness Musculoskeletal: No clubbing, No tenderness, Swelling Neurological: Normal strength at 5/5 x4 extr, Normal tone - Studies Medications List Reviewed: Yes Assessment & Plan - Problems (Diagnosis) (1) Bilateral lower extremity edema Status: Acute (2) Acute right-sided heart failure Status: Acute (3) Hypoalbuminemia Status: Acute (4) ALS (amyotrophic lateral sclerosis) Status: Acute (5) History of COPD Status: Acute - Plan Plan: 1. Continue with low-dose Lasix. Monitor labs closely. 2. Patient anasarca has improved significantly. Awaiting echocardiogram. 3. Will go ahead and decrease steroids. Go ahead and decrease Lasix. Increase 2 feedings today. Supplement with Sergo as well to assist with hypoalbuminemia. 4. Appreciate Neurology consultation. Anticipate discharge home over the next 24-48 hr. Discharge Plan: Home Plan to discharge in: Greater than 2 days - Advance Directives Does patient have a Living Will: Yes Does patient have a Durable POA for Healthcare: Yes - Code Status/Comfort Care Code Status: Full Code Critical Care: No Time Spent Managing PTS Care (In Minutes): 35
[2020-09-04] MEDS ORDERED: predniSONE 10 MG TAB PO SCH (09:00)
[2020-09-04] MEDS ORDERED: POTASSIUM 25 MEQ EFFERV TAB PO ONE (09:00)
--- NOTE | 2020-09-04 11:07 | CON ---
Date of Consultation: 09/04/2020 Reason For Consultation: Congestive heart failure. History Of Present Illness: Mr. Tomlinson is an 79-year-old white male. Has a history of COPD, ALS, f ed by PEG tube. Apparently, he had a chest x-ray showing possible edema with chronic interstitial corbin ng disease. Venous Doppler was negative. He has an EKG that showed a right bundle-branch block. He had some edema. Shortness of breath has resolved with IV Lasix. There is a question about right-si ded congestive heart failure. Echocardiogram is pending for tomorrow. The patient now is feeling as ymptomatic and wants to go home. At one point, he had some shortness of breath and pedal edema. Den ied any nausea, vomiting, diaphoresis, or chest pain. He denied palpitation or syncope. His oxygen level is still 90% on room air and he is requesting home oxygen, which will be set up. Past Medical History: As stated above. Allergies: NONE. Review of Systems: Negative. Social History: Negative. Family History: Negative. Medications: Include Flomax, inhalers, prednisone, Jevity, and riluzole. Physical Examination: Vital Signs: Stable. He was afebrile. He was in sinus rhythm. O2 saturation was 90% on nasal angie norberto. HEENT: Negative. Neck: Supple with no bruit. Chest: Clear. Cardiac: Reveals a regular rhythm and rate. No murmurs, gallops, or rubs. Abdomen: Benign. Extremities: Revealed no clubbing, cyanosis, or edema. Diagnostic Data: Troponin was negative. EKG showed right bundle-branch block. Venous Doppler is ne gative. BNP was 495. Glucose was 272. Impression And Plan: 1.Congestive heart failure, possibly acute diastolic versus right-sided congestive heart failure wit h leg edema and possible interstitial edema by chest x-ray. This has resolved with Lasix. There is an echocardiogram pending. The patient, however, wants to go home and I agree with that. I am going to set him up for an outpatient echocardiogram and he needs to be set up for home oxygen. When he g oes home, he should go home on a low dose Lasix maybe 20 mg daily. 2.Chronic obstructive pulmonary disease. He is on inhalers and prednisone. 3.Amyotrophic lateral sclerosis. 4.He is fed by PEG. 5.Possible diabetes that needs to be addressed by primary care physician. We will see what the echo cardiogram shows. Continue his present regimen including low-dose IV Lasix. Continue the inhalers. Continue Lovenox. He can go home today and I will see him as an outpatient in the near future. GI/RENETTA Voice ID: [id number] Report ID: [id number]
[2020-09-04 16:04] VITALS: O2SAT 97
[2020-09-05 00:48] VITALS: BP 117/59; TEMP 97.6
--- NOTE | 2020-09-05 00:52 | P.DS ---
Discharge Date: 09/04/20 Disposition: ROUTINE DISCHARGE Discharge Condition: GOOD Reason for Admission: Acute CHF exacerbation Consultations: Cardiology - Problems (1) Bilateral lower extremity edema Status: Acute (2) Acute right-sided heart failure Status: Acute (3) Hypoalbuminemia Status: Acute (4) ALS (amyotrophic lateral sclerosis) Status: Acute (5) History of COPD Status: Acute Brief History of Present Illness: Patient is an 79-year-old gentleman who came to the hospital with shortness of breath. Patient also had lower extremity edema. Patient has had increased secretions in the upper airway. He has had ALS and his if muscles of down weaker to the point he needed a PEG tube placed. He has been following up with neurologist, Dr. Mendoza, along with Neurology at [facility] for ALS. Patient has notice that since he increased his tube feedings his lower extremity edema has increased quite significantly. Patient does not have any other symptoms except for the occasional shortness of breath. The lower extremity edema was the most concerning symptom in patient had an outpatient Doppler ordered which we went ahead and ordered in the emergency room which came back negative. Echocardiogram is also pending. Patient has a history of anasarca and we need to make sure patient does not have right-sided heart failure secondary to his chronic COPD. At this time, patient be admitted to the hospital for further evaluation. Hospital Course: Patient was diuresed aggressively and lower extremity has resolved. Patient was felt to have BLE edema. Patient is clinically doing well at this time. Would need an echocardiogram to meet core measures, but patient is wanting to go home. At this time we will discharge patient home with outpt follow-up. Increase protein supplementation. May help decrease 3rd spacing of fluid. Vital Signs/Physical Exam: Temp Pulse Resp BP Pulse Ox 97.6 F 88 18 117/59 L 94 09/05/20 00:48 09/05/20 00:48 09/05/20 00:48 09/05/20 00:48 09/05/20 00:48 General: Alert, In no apparent distress, Oriented x3 Laboratory Data at Discharge: WBC 6.6 K/uL (4.3-10.9) D 09/03/20 05:30 Hgb 13.0 g/dL (13.6-17.9) L 09/03/20 05:30 Hct 38.8 % (39.6-49.0) L 09/03/20 05:30 Plt Count 254 K/uL (152-406) 09/03/20 05:30 PT 10.9 SECONDS (9.5-12.5) 09/02/20 12:45 INR 0.92 09/02/20 12:45 Sodium 139 mmol/L (136-145) 09/04/20 05:22 Potassium Cancelled 09/04/20 14:10 BUN 61 mg/dL (7-18) H 09/04/20 05:22 Creatinine 1.14 mg/dL (0.55-1.3) 09/04/20 05:22 Glucose 292 mg/dL (74-106) H 09/04/20 05:22 Phosphorus 4.5 mg/dL (2.5-4.9) 09/03/20 05:30 Magnesium 2.7 mg/dL (1.8-2.4) H 09/03/20 05:30 Total Bilirubin 0.5 mg/dL (0.2-1.0) 09/03/20 05:30 AST 26 U/L (15-37) 09/03/20 05:30 ALT 59 U/L (12-78) 09/03/20 05:30 Alkaline Phosphatase 126 U/L (45-117) H 09/03/20 05:30 Home Medications: Albuterol Sulfate [Proair Respiclick] 90 mcg IH Q4HP PRN 08/17/20 Budesonide/Formoterol Fumarate [Budesonide-Formoterol 160-4.5] 10.2 gm IH BID 08/17/20 Riluzole 50 mg FT BID 08/17/20 Tamsulosin HCl 0.4 mg PO BID 08/17/20 predniSONE [Deltasone*] 10 mg FT DAILY 08/17/20 Guaifenesin/Dextromethorphan [Mucinex Fast-Max Dm Max Liquid] 20 ml FT Q4HP PRN 09/02/20 Albuterol Neb [Proventil 0.083% Neb Soln] 2.5 mg NEB [id number] #1 box 09/04/20 Furosemide [Lasix] 20 mg PO DAILY #30 tablet 09/04/20 Glipizide [Glipizide Xl] 2.5 mg PO DAILY #30 tab.er.24 09/04/20 Ipratropium Neb [Atrovent*] 0.5 mg NEB [id number] #1 box 09/04/20 Sergo [Sergo*] 1 pkt PO BID #60 powd.pack 09/04/20 Nebulizer and Compressor [Procare Compressor Nebulizer] 1 each MC DAILY 30 Days #1 each 09/04/20 Nut.tx.gluc Intol,Lf,Soy/Fiber [Glucerna 1.5 Nima Liquid] 237 ml PO Q4H #180 liquid 09/04/20 Potassium Chloride [K-Dur] 10 meq PO DAILY #30 tab.er.prt 09/04/20 New Medications: Ipratropium Neb [Atrovent*] 0.5 mg NEB [id number] #1 box Glipizide [Glipizide Xl] 2.5 mg PO DAILY #30 tab.er.24 Nut.tx.gluc Intol,Lf,Soy/Fiber [Glucerna 1.5 Nima Liquid] 237 ml PO Q4H #180 liquid Sergo [Sergo*] 1 pkt PO BID #60 powd.pack Potassium Chloride [K-Dur] 10 meq PO DAILY #30 tab.er.prt Furosemide [Lasix] 20 mg PO DAILY #30 tablet Nebulizer and Compressor [Procare Compressor Nebulizer] 1 each MC DAILY 30 Days #1 each Albuterol Neb [Proventil 0.083% Neb Soln] 2.5 mg NEB [id number] #1 box Patient Discharge Instructions: OK TO DC IV AND DC HOME. FOLLOW-UP WITH PRIMARY CARE PROVIDER IN 1-2 WEEKS. FOLLOW-UP WITH CARDIOLOGY IN A.M. FROM ECHOCARDIOGRAM. RETURN TO THE ER IF SYMPTOMS WORSEN. CALL or TEXT DR. RUSSELL AT [phone] IF ANY QUESTIONS REGARDING HOSPITAL STAY. PLEASE CALL THE FLOOR AT [phone] IF ANY MEDICATION OR NURSING QUESTIONS. Diet: ADA Activity: Fall precautions Followup: Endy Partida MD [ACTIVE - CAN ADMIT] - Kemal Mendoza MD [Primary Care Provider] - (Call to make an appointment. ) Time spent managing pt's care (in minutes): 35
== END 2020-09-04 16:15 | disposition home or self-care (01) | DRG 292 ==
LOC: ER 10:55 → ERHOLD 15:25 → 2ND 16:48
PROVIDERS: ADMIT Hospitalist; ATTEND Hospitalist
DX: I50.811 Acute right heart failure (principal); G12.21 Amyotrophic lateral sclerosis; E46 Unspecified protein-calorie malnutrition; Z68.1 Body mass index [BMI] 19.9 or less, adult; J44.9 Chronic obstructive pulmonary disease, unspecified; E88.09 Other disorders of plasma-protein metabolism, not elsewhere classified; Z93.1 Gastrostomy status; Z87.891 Personal history of nicotine dependence; Z79.82 Long term (current) use of aspirin; Z79.899 Other long term (current) drug therapy; Z79.52 Long term (current) use of systemic steroids; Z79.84 Long term (current) use of oral hypoglycemic drugs
CPT/HCPCS: 36415; 71045; 80048; 80053; 80076; 82533; 82947; 83735; 83880; 84100; 84439; 84443; 84484; 85025; 85610; 93005; 93970; 94640; 96374; 99285; J1650; J1940; J2930; J7512; P9047; U0002

== ENCOUNTER 2020-09-28 09:41 | Inpatient (IN) | payer OTHER ==
[2020-09-28] MEDS ORDERED: MORPHINE 4 MG/ML SYR ONE (10:29)
--- NOTE | 2020-09-28 11:50 | RAD REPORT ---
EXAM DESCRIPTION: CT - Thorax Wo Con - 09/28/2020 10:51 am CLINICAL HISTORY: PAIN, fall, right-sided chest and rib pain COMPARISON: No comparisons TECHNIQUE: Axial 5 mm thick images of the chest were obtained without IV contrast. All CT scans are performed using dose optimization technique as appropriate and may include automated exposure control or mA/KV adjustment according to patient size. FINDINGS: Nondisplaced fracture of the lateral right sixth rib is present. Seventh rib is fractured anteriorly near the costochondral junction. Right fourth rib is questionably fractured posteriorly wh ere the rib abuts the transverse process. Posterior ninth rib fracture is present. Tenth rib is fract ured near the costochondral junction. None of the rib fractures are displaced. Patient has a 20-25% pneumothorax primarily in the apex and anterior chest. Underlying COPD changes a re present. Small amount of pleural fluid is present which could be reactive fluid or blood. There is lung parenchymal opacification in the posterior gutter on the right that is probably atelectasis. De lete select No abnormal mediastinal or hilar masses or lymphadenopathy seen. No gross aortic or pulmonary artery finding suspected. Assessment is limited in the absence of IV contrast. No pericardial effusion. Limited upper abdomen imaging shows a PEG tube. No fluid in the upper abdomen or adjacent to the live r. IMPRESSION: Approximately 20-25% right-sided pneumothorax primarily anteriorly positioned. There is apex and base pneumothorax component. Patient has multiple lateral and posterior nondisplaced rib fractures. No rib shows more than 1 fract ure. Trace amount of pleural fluid or blood. Posterior right gutter atelectasis present.
--- NOTE | 2020-09-28 12:08 | EDPHYS ---
Physician Documentation [facility] Name: Hiram Tomlinson Age: 79 yrs Sex: Male : 1940 Arrival Date: 09/28/2020 Time: 09:42 Bed 19 Private MD: ED Physician Cory Howard HPI: 09/28 10:19 This 79 yrs old Male presents to ER via Wheelchair with complaints of Fall kb Injury. 10:19 Details of fall: The patient fell from an upright position, while walking. Onset: The kb symptoms/episode began/occurred yesterday. Associated injuries: The patient sustained injury to the chest, specifically the right lateral anterior chest, pain with breathing, pain with movement, tenderness. Severity of symptoms: At their worst the symptoms were moderate, in the emergency department the symptoms are unchanged. The patient has not experienced similar symptoms in the past. The patient has not recently seen a physician. Pt was walking and turned too fast, lost his footing and fell onto right side. Historical: - Allergies: 10:00 No Known Allergies; iw - Home Meds: 10:00 riluzole 50 mg oral tab 1 tab every 12 hours [Active]; Proscar 5 mg Oral tab 1 tab once iw daily [Active]; Lasix Oral as needed [Active]; Prednisone Oral as needed [Active]; Albuterol Inhl as needed [Active]; - PMHx: 10:00 ALS; COPD; iw - PSHx: 10:00 Peg tube; iw - Immunization history:: Adult Immunizations up to date. - Social history:: Smoking status: Patient/guardian denies using tobacco, but has a distant history of tobacco abuse. ROS: 10:18 Constitutional: Negative for fever, chills, and weight loss, Respiratory: Negative for kb shortness of breath, cough, wheezing, and pleuritic chest pain, Abdomen/GI: Negative for abdominal pain, nausea, vomiting, diarrhea, and constipation, Back: Negative for injury and pain, MS/Extremity: Negative for injury and deformity, Skin: Negative for injury, rash, and discoloration, Neuro: Negative for headache, weakness, numbness, tingling, and seizure. 10:18 Cardiovascular: Positive for chest pain, with cough, with movement, of the right lateral anterior chest, Negative for edema, orthopnea, palpitations, paroxysmal nocturnal dyspnea. Exam: 10:18 Constitutional: This is a well developed, well nourished patient who is awake, alert, kb and in no acute distress. Head/Face: Normocephalic, atraumatic. Cardiovascular: Regular rate and rhythm with a normal S1 and S2. No gallops, murmurs, or rubs. Normal PMI, no JVD. No pulse deficits. Respiratory: Lungs have equal breath sounds bilaterally, clear to auscultation and percussion. No rales, rhonchi or wheezes noted. No increased work of breathing, no retractions or nasal flaring. Abdomen/GI: Soft, non-tender, with normal bowel sounds. No distension or tympany. No guarding or rebound. No evidence of tenderness throughout. Skin: Warm, dry with normal turgor. Normal color with no rashes, no lesions, and no evidence of cellulitis. MS/ Extremity: Pulses equal, no cyanosis. Neurovascular intact. Full, normal range of motion. Neuro: Awake and alert, GCS 15, oriented to person, place, time, and situation. Cranial nerves II-XII grossly intact. Motor strength 5/5 in all extremities. Sensory grossly intact. Cerebellar exam normal. Normal gait. 10:18 Chest/axilla: Inspection: normal, Palpation: tenderness, that is moderate, of the right lateral anterior chest and right lateral posterior chest, that totally reproduces the patient's complaints. 12:32 ECG was reviewed by the Attending Physician. kb Vital Signs: 09:58 BP 136 / 66; Pulse 117; Resp 24 S; Temp 97.1; Pulse Ox 90% on 2 lpm NC; iw 10:30 BP 100 / 77; Pulse 106; Resp 20; Pulse Ox 93% on 2 lpm NC; ca1 11:20 BP 111 / 57; Pulse 100; Resp 20 S; Pulse Ox 96% on 2 lpm NC; ca1 12:35 BP 133 / 75; Pulse 104; Resp 20 S; Pulse Ox 95% on 2 lpm NC; ca1 13:30 BP 133 / 77; Pulse 100; Resp 20 S; Pulse Ox 96% on 2 lpm NC; ca1 14:13 BP 124 / 74; Pulse 95; Resp 20; Pulse Ox 97% on 2 lpm NC; ca1 15:00 BP 127 / 51; Pulse 102; Resp 20; Pulse Ox 95% on 2 lpm NC; ca1 16:00 BP 142 / 59; Pulse 99; Resp 19 S; Pulse Ox 100% on 2 lpm NC; ca1 17:07 BP 122 / 53; Pulse 90; Resp 19 S; Pulse Ox 97% on 2 lpm NC; ca1 17:29 BP 120 / 57; Pulse 91; Resp 20 S; Pulse Ox 97% on 2 lpm NC; ca1 MDM: 10:02 Patient medically screened. kb 10:18 Data reviewed: vital signs, nurses notes. Data interpreted: Pulse oximetry: on home O2 kb is 90 %. Interpretation: acceptable. 11:53 Counseling: I had a detailed discussion with the patient and/or guardian regarding: the kb historical points, exam findings, and any diagnostic results supporting the discharge/admit diagnosis, lab results, radiology results, the need for further work-up and treatment in the hospital. 12:00 Physician consultation: Nadir James MD was contacted at 11:55, regarding consult, kb patient's condition, and will see patient in ED, shortly. 12:04 Physician consultation: Ramsey Sanchez was contacted at 12:04, regarding admission, to the telemetry unit. patient's condition. 09/28 11:52 Order name: CBC with Diff; Complete Time: 12:32 kb 09/28 11:52 Order name: Basic Metabolic Panel; Complete Time: 12:43 kb 09/28 11:52 Order name: Protime (+inr); Complete Time: 12:41 kb 09/28 11:52 Order name: Ptt, Activated; Complete Time: 12:41 kb 09/28 13:34 Order name: Basic Metabolic Panel EDMN 09/28 13:34 Order name: Basic Metabolic Panel EDMN 09/28 13:34 Order name: Basic Metabolic Panel EDMN 09/28 13:34 Order name: Basic Metabolic Panel EDMN 09/28 13:34 Order name: Creatine Phosphokinase EDMN 09/28 13:34 Order name: Creatine Phosphokinase EDMN 09/28 13:34 Order name: Creatine Phosphokinase EDMN 09/28 13:34 Order name: Creatine Phosphokinase EDMN 09/28 13:34 Order name: Magnesium EDMN 09/28 13:34 Order name: Magnesium EDMN 09/28 10:10 Order name: CT Chest Wo Con; Complete Time: 11:51 kb 09/28 11:52 Order name: IV Start; Complete Time: 12:13 kb 09/28 11:56 Order name: EKG; Complete Time: 11:57 kb 09/28 11:56 Order name: EKG - Nurse/Tech; Complete Time: 12:43 kb 09/28 12:08 Order name: Chest Tube Consent; Complete Time: 13:10 kb 09/28 12:08 Order name: Chest Tube Setup; Complete Time: 13:42 kb 09/28 13:34 Order name: CONS Physician Consult [facility] 09/28 13:34 Order name: Physical Therapy Consult [facility] 09/28 13:34 Order name: NPO EDMN 09/28 13:34 Order name: Phosphorus EDMN 09/28 13:34 Order name: Phosphorus [facility] 09/28 13:35 Order name: Chest Single View XRAY 09/28 14:31 Order name: RAD; Complete Time: 14:32 EDMS EC:32 Rate is 101 beats/min. Rhythm is regular. QRS Vowinckel is Normal. MS interval is normal at kb 120 msec. QRS interval is normal at 118 msec. QT interval is normal at 364 msec. Administered Medications: 10:19 Drug: morphine 4 mg {Note: rass 0.} Route: IM; Site: left deltoid; ca1 11:00 Follow up: Response: No adverse reaction; Pain is decreased; RASS: Alert and Calm (0) ca1 13:02 Drug: NS 0.9% 500 ml Route: IV; Rate: bolus; Site: right antecubital; ca1 14:14 Follow up: Response: No adverse reaction; IV Status: Completed infusion; IV Intake: ca1 500ml Disposition: 09/29 08:58 Co-signature as Attending Physician, Cory Howard MD I agree with the assessment and kdr plan of care. Disposition: 09/28/20 12:07 Hospitalization ordered by Ramsey Sanchez for Inpatient Admission. Preliminary diagnosis are Pneumothorax, unspecified, Multiple fractures of ribs, right side. - Bed requested for Telemetry/MedSurg (Inpatient). - Status is Inpatient Admission. ca1 - Condition is Fair. - Problem is new. - Symptoms are unchanged. Signatures: Dispatcher [facility] Jeanie Ngo, MARA MORALES-Cory Kingsley MD MD kdr Williams, Irene, RN Arun Anderson RN RN ja1 Ela Hurtado RN RN ca1 Corrections: (The following items were deleted from the chart) 09/28 16:56 12:07 Hospitalization Ordered by Ramsey Sanchez for Inpatient Admission. Preliminary ja diagnosis is Pneumothorax, unspecified; Multiple fractures of ribs, right side. Bed requested for Telemetry/MedSurg (Inpatient). Status is Inpatient Admission. Condition is Fair. Problem is new. Symptoms are unchanged. kb 17:09 16:56 09/28/2020 12:07 Hospitalization Ordered by Ramsey Sanchez for Inpatient ja1 Admission. Preliminary diagnosis is Pneumothorax, unspecified; Multiple fractures of ribs, right side. Bed requested for Telemetry/MedSurg (Inpatient). Status is Inpatient Admission. Condition is Fair. Problem is new. Symptoms are unchanged. ja1 18:19 17:09 09/28/2020 12:07 Hospitalization Ordered by Ramsey Sanchez for Inpatient ca1 Admission. Preliminary diagnosis is Pneumothorax, unspecified; Multiple fractures of ribs, right side. Bed requested for Telemetry/MedSurg (Inpatient). Status is Inpatient Admission. Condition is Fair. Problem is new. Symptoms are unchanged. ja1
--- NOTE | 2020-09-28 12:08 | ER ---
Nurse's Notes [facility] Name: Hiram Tomlinson Age: 79 yrs Sex: Male : 1940 Arrival Date: 09/28/2020 Time: 09:42 Bed 19 Private MD: Diagnosis: Pneumothorax, unspecified;Multiple fractures of ribs, right side Presentation: 09/28 09:55 Chief complaint: Patient's son or daughter states: fell yesterday morning around 5 am, iw and is in pain , he was using walker to get to restroom and he lost his balance and fell onto right side, hit straight to the floor and now has pain in right side of ribs. Care prior to arrival: None. 09:55 Acuity: BERTRAM 4 iw 09:55 Method Of Arrival: Wheelchair iw 09:58 Coronavirus screen: At this time, the client does not indicate any symptoms associated iw with coronavirus-19. Ebola Screen: Patient negative for fever greater than or equal to 101.5 degrees Fahrenheit, and additional compatible Ebola Virus Disease symptoms Patient denies exposure to infectious person. Patient denies travel to an Ebola-affected area in the 21 days before illness onset. No symptoms or risks identified at this time. Initial Sepsis Screen: Does the patient meet any 2 criteria? No. Patient's initial sepsis screen is negative. Does the patient have a suspected source of infection? No. Patient's initial sepsis screen is negative. Risk Assessment: Do you want to hurt yourself or someone else? Patient reports no desire to harm self or others. Onset of symptoms was September 27, 2020. 10:08 Acuity: BERTRAM 3 iw Historical: - Allergies: 10:00 No Known Allergies; iw - Home Meds: 10:00 riluzole 50 mg oral tab 1 tab every 12 hours [Active]; Proscar 5 mg Oral tab 1 tab once iw daily [Active]; Lasix Oral as needed [Active]; Prednisone Oral as needed [Active]; Albuterol Inhl as needed [Active]; - PMHx: 10:00 ALS; COPD; iw - PSHx: 10:00 Peg tube; iw - Immunization history:: Adult Immunizations up to date. - Social history:: Smoking status: Patient/guardian denies using tobacco, but has a distant history of tobacco abuse. Screenin:10 Abuse screen: Denies threats or abuse. Denies injuries from another. Nutritional ca1 screening: No deficits noted. Tuberculosis screening: No symptoms or risk factors identified. Fall Risk Fall in past 12 months (25 points). Assessment: 10:10 General: Appears in no apparent distress. comfortable, Behavior is calm, cooperative, ca1 appropriate for age. Pain: Complains of pain in right lateral posterior chest and chest and right lateral anterior chest Pain does not radiate. Pain currently is 9 out of 10 on a pain scale. Pain began 1 day ago. Neuro: Level of Consciousness is awake, alert, obeys commands, Oriented to person, place, time, situation. Cardiovascular: Heart tones S1 S2 present Capillary refill < 3 seconds Patient's skin is warm and dry. Rhythm is sinus tachycardia. Respiratory: Airway is patent Respiratory effort is even, unlabored, Respiratory pattern is regular, symmetrical, Breath sounds are clear bilaterally. GI: Abdomen is flat, non-distended, PEG tube in place, clamped. Site clean. Bowel sounds present X 4 quads. Abd is soft and non tender X 4 quads. : No signs and/or symptoms were reported regarding the genitourinary system. EENT: No signs and/or symptoms were reported regarding the EENT system. Derm: Skin is intact, is healthy with good turgor, Skin is pink, warm \T\ dry. Musculoskeletal: Circulation, motion, and sensation intact. Capillary refill < 3 seconds. 11:20 Reassessment: Patient appears in no apparent distress at this time. Patient and/or ca1 family updated on plan of care and expected duration. Pain level reassessed. Patient is alert, oriented x 3, equal unlabored respirations, skin warm/dry/pink. 12:30 Reassessment: Patient appears in no apparent distress at this time. Patient and/or ca1 family updated on plan of care and expected duration. Pain level reassessed. Patient is alert, oriented x 3, equal unlabored respirations, skin warm/dry/pink. 13:30 Reassessment: Patient appears in no apparent distress at this time. Patient and/or ca1 family updated on plan of care and expected duration. Pain level reassessed. Patient is alert, oriented x 3, equal unlabored respirations, skin warm/dry/pink. 14:30 Reassessment: Patient appears in no apparent distress at this time. Patient and/or ca1 family updated on plan of care and expected duration. Pain level reassessed. Patient is alert, oriented x 3, equal unlabored respirations, skin warm/dry/pink. 15:30 Reassessment: Patient appears in no apparent distress at this time. Patient and/or ca1 family updated on plan of care and expected duration. Pain level reassessed. Patient is alert, oriented x 3, equal unlabored respirations, skin warm/dry/pink. 16:30 Reassessment: Patient appears in no apparent distress at this time. Patient and/or ca1 family updated on plan of care and expected duration. Pain level reassessed. Patient is alert, oriented x 3, equal unlabored respirations, skin warm/dry/pink. 17:17 Reassessment: called for report, nurse will call back. ca1 17:29 Reassessment: Patient appears in no apparent distress at this time. Patient and/or ca1 family updated on plan of care and expected duration. Pain level reassessed. Patient is alert, oriented x 3, equal unlabored respirations, skin warm/dry/pink. Vital Signs: 09:58 BP 136 / 66; Pulse 117; Resp 24 S; Temp 97.1; Pulse Ox 90% on 2 lpm NC; iw 10:30 BP 100 / 77; Pulse 106; Resp 20; Pulse Ox 93% on 2 lpm NC; ca1 11:20 BP 111 / 57; Pulse 100; Resp 20 S; Pulse Ox 96% on 2 lpm NC; ca1 12:35 BP 133 / 75; Pulse 104; Resp 20 S; Pulse Ox 95% on 2 lpm NC; ca1 13:30 BP 133 / 77; Pulse 100; Resp 20 S; Pulse Ox 96% on 2 lpm NC; ca1 14:13 BP 124 / 74; Pulse 95; Resp 20; Pulse Ox 97% on 2 lpm NC; ca1 15:00 BP 127 / 51; Pulse 102; Resp 20; Pulse Ox 95% on 2 lpm NC; ca1 16:00 BP 142 / 59; Pulse 99; Resp 19 S; Pulse Ox 100% on 2 lpm NC; ca1 17:07 BP 122 / 53; Pulse 90; Resp 19 S; Pulse Ox 97% on 2 lpm NC; ca1 17:29 BP 120 / 57; Pulse 91; Resp 20 S; Pulse Ox 97% on 2 lpm NC; ca1 ED Course: 09:42 Patient arrived in ED. ag5 09:55 Ela Hurtado, TRUDI is Primary Nurse. ca1 09:58 Triage completed. iw 10:00 Arm band placed on. iw 10:01 Jeanie Ngo FNP-C [facility]. kb 10:01 Cory Howard MD is Attending Physician. kb 10:10 Patient has correct armband on for positive identification. Bed in low position. Call ca1 light in reach. Side rails up X2. Pulse ox on. NIBP on. Warm blanket given. 10:51 CT Chest Wo Con In Process Unspecified. EDMS 10:53 CT completed. Patient tolerated procedure well. Patient moved to CT via stretcher. sw Patient moved back from CT. 12:06 Ramsey Sanchez is Hospitalizing Provider. kb 12:13 Inserted saline lock: 20 gauge in right antecubital area, using aseptic technique. dh4 Blood collected. 13:11 Surgical consent explained by physician, signed by patient, CT insertion. ca1 13:42 Assist provider with chest tube insertion with thoracentesis kit and tube in Tray was ca1 set up. Attached to wall suction, Chest tube inserted by Nadir James MD Placement verified by CXR, fluctuation of fluid, return of air, Dressed with 4X4s, Patient tolerated well. 17:13 Patient admitted, IV remains in place. ca1 Administered Medications: 10:19 Drug: morphine 4 mg {Note: rass 0.} Route: IM; Site: left deltoid; ca1 11:00 Follow up: Response: No adverse reaction; Pain is decreased; RASS: Alert and Calm (0) ca1 13:02 Drug: NS 0.9% 500 ml Route: IV; Rate: bolus; Site: right antecubital; ca1 14:14 Follow up: Response: No adverse reaction; IV Status: Completed infusion; IV Intake: ca1 500ml Intake: 14:14 IV: 500ml; Total: 500ml. ca1 Outcome: 12:07 Decision to Hospitalize by Provider. kb 17:34 Admitted to Med/surg accompanied by nurse, accompanied by tech, family with patient, ca1 via stretcher, room 211, with oxygen, with chart, Other CT Tube with water seal chamber Report called to TRUDI Mcfarland 17:34 Condition: stable 17:34 Instructed on the need for admit. 18:19 Patient left the ED. ca1 Signatures: Dispatcher [employer] EDMS Jeanie Ngo, ANTIQUE COLLECTOR-C ANTIQUE COLLECTOR-Ckb Hetal Salamanca, TRUDI RN Katerine Pandya Cheryl, RN RN ca1 Ninoska Estes ag5 Christopher Jiménez 4 Corrections: (The following items were deleted from the chart) 10:48 10:47 BP 100 / 77; Pulse 106bpm; Resp 20bpm; Pulse Ox 93% 2 lpm Nasal Cannula; ca1 ca1 15:43 13:42 Assist provider with chest tube insertion with thoracentesis kit and tube in Tray ca1 was set up. Attached to wall suction, Chest tube inserted by Nadir James MD Placement verified by fluctuation of fluid, return of air, Dressed with 4X4s, Patient tolerated well. ca1 17:13 10:10 GI: Abdomen is flat, non-distended, Bowel sounds present X 4 quads. Abd is soft ca1 and non tender X 4 quads. ca1 18:19 17:34 Admitted to Med/surg accompanied by tech, via stretcher, room 211, with oxygen, ca1 with chart, Other CT Tube with water seal chamber Report called to TRUID Mcfarland ca1
[2020-09-28 12:28] LABS: Basophils % 0.3 % (0-1.3); Hematocrit 40.2 % (39.6-49.0); MPV 9.5 fL (7.6-11.3); RBC Red Blood Cell Count 4.47 M/uL (4.33-5.43)
[2020-09-28 12:30] LABS: Protime INR 1.06
[2020-09-28 12:40] LABS: Potassium 4.8 mmol/L (3.5-5.1)
[2020-09-28] MEDS ORDERED: NA CHLORIDE 0.9% 500 ML ONE (13:07)
[2020-09-28] MEDS ORDERED: ALBUTEROL 2.5 MG/3 ML NEB SOL NEB PRN (13:27)
[2020-09-28] MEDS ORDERED: ACETAMINOPHEN 500 MG TAB PO PRN (13:27)
--- NOTE | 2020-09-28 13:34 | P.HP ---
Certification for Inpatient Patient admitted to: Inpatient With expected LOS: >2 Midnights Practitioner: I am a practitioner with admitting privileges, knowledge of patient current condition, hospital course, and medical plan of care. Services: Services provided to patient in accordance with Admission requirements found in Title 42 Section 412.3 of the Code of Federal Regulations Patient History Date of Service: 09/28/20 Reason for admission: Chest pain, fall History of Present Illness: 79-year-old gentleman with a history of ALS with oropharyngeal dysphagia, status post PEG, COPD was brought to the emergency department after a fall at home. According to the family patient was returning from the bathroom when he lost his balance and fell. At baseline he ambulates with a walker. He experienced chest pain but was able to have a stress test done this morning. The pain became much severe and he therefore presented to the ED where a CT chest demonstrated 20-25% right pneumothorax and multiple nondisplaced rib fractures. Case was communicated to Dr. James who is planning to put in a chest tube. Patient denies any loss of consciousness during the fall. No syncopal episodes described, no seizures. Patient is admitted for further management. Allergies No Known Allergies Allergy (Verified 09/02/20 17:41) Home Medications: Albuterol Sulfate [Proair Respiclick] 90 mcg IH Q4HP PRN 08/17/20 Budesonide/Formoterol Fumarate [Budesonide-Formoterol 160-4.5] 10.2 gm IH BID 08/17/20 Riluzole 50 mg FT BID 08/17/20 Tamsulosin HCl 0.4 mg PO BID 08/17/20 predniSONE [Deltasone*] 10 mg FT DAILY 08/17/20 Guaifenesin/Dextromethorphan [Mucinex Fast-Max Dm Max Liquid] 20 ml FT Q4HP PRN 09/02/20 Albuterol Neb [Proventil 0.083% Neb Soln] 2.5 mg NEB [id number] #1 box 09/04/20 Furosemide [Lasix] 20 mg PO DAILY #30 tablet 09/04/20 Glipizide [Glipizide Xl] 2.5 mg PO DAILY #30 tab.er.24 09/04/20 Ipratropium Neb [Atrovent*] 0.5 mg NEB [id number] #1 box 09/04/20 Sergo [Sergo*] 1 pkt PO BID #60 powd.pack 09/04/20 Nebulizer and Compressor [Procare Compressor Nebulizer] 1 each MC DAILY 30 Days #1 each 09/04/20 Nut.tx.gluc Intol,Lf,Soy/Fiber [Glucerna 1.5 Nima Liquid] 237 ml PO Q4H #180 liquid 09/04/20 Potassium Chloride [K-Dur] 10 meq PO DAILY #30 tab.er.prt 09/04/20 - Past Medical/Surgical History Diabetic: No -: ALS -: COPD -: BPH -: PEG 08/18/20 - Family History Family History: Reviewed- Non-Contributory - Social History Alcohol use: No CD- Drugs: No Caffeine use: No Review of Systems Other: Except as documented, all other systems reviewed and negative. Physical Examination - Physical Exam General: Alert, In no apparent distress HEENT: Atraumatic, PERRLA, Mucous membr. moist/pink, EOMI, Sclerae nonicteric Neck: Supple, JVD not distended Respiratory: Clear to auscultation bilaterally, Diminished (Diffuse.) Cardiovascular: No edema, Regular rate/rhythm, Normal S1 S2 Capillary refill: <2 Seconds Gastrointestinal: Normal bowel sounds, Soft and benign, Non-distended, No tenderness Musculoskeletal: No swelling, No erythema Integumentary: No rashes, No cyanosis Neurological: Normal strength at 5/5 x4 extr, Cranial nerves 3-12 intact - Studies Laboratory Data (last 24 hrs) 09/28/20 12:10: PT 12.5, INR 1.06, APTT 32.7 09/28/20 12:10: Sodium 148 H, Potassium 4.8, BUN 49 H, Creatinine 0.89, Glucose 87 09/28/20 12:10: WBC 14.0 H, Hgb 13.1 L, Hct 40.2, Plt Count 284 Assessment and Plan - Problems (Diagnosis) (1) Pneumothorax Current Visit: Yes Status: Acute (2) Fall Current Visit: Yes Status: Acute (3) COPD (chronic obstructive pulmonary disease) Current Visit: Yes Status: Acute (4) ALS (amyotrophic lateral sclerosis) Current Visit: No Status: Acute - Plan Admit to ICU. Dr. James to put in chest tube. Pain management as needed with IV morphine. Bronchodilators p.r.n.. Chest physiotherapy PT. NPO except medication. No tube feeding today. Continue other home medication. - Advance Directives Does patient have a Living Will: Yes Does patient have a Durable POA for Healthcare: Yes - Code Status/Comfort Care Code Status Assessed: Yes (DNR/DNI) Code Status: Do Not Attempt Resuscitat
--- NOTE | 2020-09-28 14:30 | RAD REPORT ---
EXAM DESCRIPTION: [facility] Single View09/28/2020 2:15 pm CLINICAL HISTORY: Chest tube placement COMPARISON: September 28, 2020 CT IMPRESSION: A chest tube has been placed into the right lateral hemithorax. The coiled aspect of the distal chest tube lies near the chest wall. The pneumothorax has decreased in size and is small
--- NOTE | 2020-09-28 15:33 | P.OP ---
Preoperative diagnosis: RIGHT Pneumothorax Postoperative diagnosis: RIGHT Pneumothorax Primary procedure: Placement of RIGHT thoracostomy tube Anesthesia: Local 1% lidocaine Estimated blood loss: <1cc Specimen: none Findings: Air returned Complications: None Drain(s): Other (pigtail catheter used) Transferred to: Other (ER) Condition: Good
[2020-09-28] MEDS: IPRATROPIUM BROM 0.5MG/2.5ML NEB SCH ×3 (15:35→23:30)
[2020-09-28] MEDS ORDERED: ALBUTEROL 2.5 MG/3 ML NEB SOL ONE (15:47)
[2020-09-28] MEDS ORDERED: IPRATROPIUM BROM 0.5MG/2.5ML ONE (15:47)
--- NOTE | 2020-09-28 16:52 | OP ---
Date of Procedure: 09/28/2020 Surgeon: Nadir James MD, Preoperative Diagnosis: Right pneumothorax. Postoperative Diagnosis: Right pneumothorax. Procedure Performed: Placement of right thoracostomy tube. Anesthesia: 1% lidocaine used. Estimated Blood Loss: Less than 1 mL. Specimen: None. Findings: Air was returned upon catheterization of the right thoracic space. Complications: None. Drains: A small pigtail thoracostomy tube placed. The patient remained in the ER, good condition throughout the procedure. Procedure In Detail: After informed consent was obtained, the patient was prepped and draped in the usual sterile fashion. After adequate anesthesia achieved, I anesthetized the area of the anterior l ateral chest wall with 1% lidocaine. I made a small faith incision and using a finder needle was able to cannulate the thoracic cavity. Bubbles were appreciated coming through the syringe at this point indicating untreated thoracic space. I then advanced the wire at this point using [employer] ue and removed the needle introducer. At this point, using Seldinger technique, I sequentially dilat ed up the tract and placed the pigtail catheter into the thoracic space without evidence of complicat ion. I then attached the Pneumovax system to this and secured to the chest wall with a 2-0 nylon sut ure without evidence of complication. A sterile dressing was then placed over top. The patient tole rated the procedure well without evidence of complication and transferred to PACU in good condition. All counts were correct at the end of the case. Stat chest x-ray will be performed immediately. Al l counts were correct at the end of the case. ALICJA/TOMASAL Voice ID: [id number] Report ID: [id number]
--- NOTE | 2020-09-28 17:04 | CON ---
Date of Consultation: 09/28/2020 Brief History Of Present Illness: The patient is an 79-year-old gentleman with history of ALS and or opharyngeal dysphagia, who fell approximately just over 24 hours ago and was noted to have worsening pain on the right side of his chest. He normally ambulates with a walker and is experiencing chest p ain currently and some minimal shortness of breath. The pain got significantly worse over the course of the day and as such, he came to the emergency room with the above-stated complaints. CT was perf ormed, which showed approximately 20% to 25% pneumothorax on the right thoracic space. He denies LOC , recent sick contacts. No recent travel. No COVID exposures by his report. Past Medical History: Significant for ALS, COPD, BPH. Past Surgical History: Includes PEG tube placement. Social History: Denies smoking, alcohol, or recreational drug use. Review of Systems: Ten-point review of systems other than HPI, denies. Allergies: NO KNOWN DRUG ALLERGIES. Home Medications: Include albuterol, budesonide, riluzole, , Deltasone/prednisone, Mucinex , Proventil, Lasix, glipizide, Atrovent, Procare compressor nebulizer, Glucerna, K-Dur. Physical Examination: General: At the time of my examination; he is awake, alert, and oriented. He is minimally conversiv e. His family is present throughout the exam. HEENT: Otherwise normocephalic. His sclerae were anicteric. Mucous membranes were moist. Orophary nx clear. Neck: Supple without JVD. Chest: Normal expansion and excursion. He has chest wall tenderness on the right, particularly on t he lateral aspect of the lower ribs. Abdomen: Soft. There is a PEG tube in place, which appears to be clean and functional. Extremities: No clubbing, cyanosis, or edema. Skin: Warm and dry. Laboratory Data: Reveals a white blood count of 14.0, hemoglobin 13.1, hematocrit of 40.2, platelet count is 284. Neutrophils are 82%. His PT 12.5, INR 1.06, PTT is 32.7. Sodium 148, potassium 4.8, chloride 108, carbon dioxide 38, BUN 49, creatinine 0.8, glucose is 87, calcium is 9.6. He had imagi ng performed, which included a chest CT, which officially read as approximately 20% to 25% right-side d pneumothorax, primarily anterior positioned in apex and base pneumothorax component. The patient h as multiple lateral and posterior nondisplaced rib fractures. No rib shows more than 1 fracture[address] Tr krystle amount of pleural fluid or blood, posterior right gutter atelectasis present. Specifically nondi splaced fracture of the lateral right 6th rib is present. 7th rib is fractured anteriorly near the c ostochondral junction. Right 4th rib has questionable fracture posteriorly to the rib abuts the patel sverse process. Posterior 9th rib fracture is present. 10th rib fracture is near the costochondral junction. None of the rib fractures are displaced. Assessment And Plan: This is an 79-year-old male with amyotrophic lateral sclerosis, who presents st atus post fall with multiple rib fractures as described. I have explained the risks, benefits, and alternatives of placement of a right thoracostomy tube. I will use a small dart type thoracostomy tube with a pigtail component to evacuate the pneumothorax an d I recommend pain control for rib fractures and continue medical management per primary team. I hav e explained the risks, benefits, and alternatives of the above stated plan and the patient agrees to proceed as indicated. ALICJA/RENETTA Voice ID: [id number] Report ID: [id number]
[2020-09-28] MEDS: D5 0.9 NS 1,000 ML IV SCH (18:42)
[2020-09-28] MEDS: HEPARIN 5000 UNIT/ML 1 ML VIAL SQ SCH (18:43)
[2020-09-28] MEDS ORDERED: JEVITY 1.5 CAL LIQUID 1,000 ML BOT FT SCH (22:00)
[2020-09-29] MEDS ORDERED: MORPHINE 4 MG/ML SYR IV ONE (00:26)
[2020-09-29] MEDS ORDERED: MORPHINE 4 MG/ML SYR ONE (00:34)
[2020-09-29] MEDS: HEPARIN 5000 UNIT/ML 1 ML VIAL SQ SCH ×3 (00:42→16:16)
[2020-09-29 01:49] VITALS: BMI 18.3
[2020-09-29] MEDS: IPRATROPIUM BROM 0.5MG/2.5ML NEB SCH ×5 (04:00→19:50)
[2020-09-29] MEDS: D5 0.9 NS 1,000 ML IV SCH (04:45)
[2020-09-29 04:58] LABS: Basophils % 0.5 % (0-1.3); Hematocrit 34.9 % (39.6-49.0); Lymphocytes % 9.5 % (15.3-44.8); MPV 9.8 fL (7.6-11.3); RBC Red Blood Cell Count 3.86 M/uL (4.33-5.43)
[2020-09-29 05:11] LABS: Magnesium 2.4 mg/dL (1.8-2.4); Phosphorus 4.7 mg/dL (2.5-4.9); Potassium 4.8 mmol/L (3.5-5.1)
--- NOTE | 2020-09-29 06:03 | EKG ---
Test Date: 2020-09-29 Test Time: 00:30:05 Deep Fryer Assembler: RT Evans MEASUREMENT RESULTS: Intervals: Rate: 128 WV: 128 QRSD: 116 QT: 338 QTc: 493 [place]: P: 81 WV: 128 QRS: -58 T: 62 INTERPRETIVE STATEMENTS: Sinus tachycardia with fusion complexes Right bundle branch block Left anterior fascicular block Bifascicular block Abnormal ECG Compared to ECG 09/02/2020 12:40:17 Fusion complex(es) now present Left anterior fascicular block now present Bifascicular block now present Sinus rhythm no longer present Electronically Signed On 09-29-20 06:02:52 ART TEACHER by Endy Partida
--- NOTE | 2020-09-29 06:06 | EKG ---
Test Date: 2020-09-28 Test Time: 12:27:36 Yeast Washer: PAWEL MEASUREMENT RESULTS: Intervals: Rate: 101 AL: 120 QRSD: 118 QT: 364 QTc: 471 [place]: P: 55 AL: 120 QRS: 70 T: 71 INTERPRETIVE STATEMENTS: Sinus tachycardia Right bundle branch block Abnormal ECG Compared to ECG 09/02/2020 12:40:17 Sinus rhythm no longer present Electronically Signed On 09-29-20 06:03:11 SOURCE INSPECTOR by Endy Partida
--- NOTE | 2020-09-29 07:44 | RAD REPORT ---
EXAM DESCRIPTION: RAD - Chest Single View - 09/29/2020 12:35 am CLINICAL HISTORY: dyspnea, chest tube COMPARISON: Portable September 28 TECHNIQUE: AP portable chest image was obtained 09/29/2020 12:35 am . FINDINGS: No change in positioning of the lateral mid right lung field chest tube. Minimal apical pn eumothorax remains. Anterior pneumothorax can be occult on a portable study, particularly when acquir ed as this study was done in supine positioning. Trachea remains midline. Patchy atelectasis changes are present in the right lung field. Left lung field is clear. Heart and vasculature are normal. No measurable pleural effusion and no pneumothorax. No acute bony abnormality seen. No acute aortic findings suspected. IMPRESSION: Small apical pneumothorax remains. Anterior pneumothorax component can be occult on a [place] portable chest film. Patchy atelectasis in the right lung field.
[2020-09-29] MEDS: LEVALBUTEROL 1.25 MG/3 ML NEB NEB PRN (08:30)
--- NOTE | 2020-09-29 10:49 | P.PN ---
Subjective Date of Service: 09/29/20 Chief Complaint: Chest pain, fall Patient is complaining of hunger. He denies any shortness of breath. No fever. He denies any significant pain. Not much drainage seen from the chest tube. He communicates by writing. Physical Examination - Vital Signs Temperature: 97.4 F Blood Pressure: 119/64 Pulse: 107 Respirations: 20 Pulse Ox (%): 95 - Physical Exam General: Alert, In no apparent distress HEENT: Mucous membr. moist/pink Neck: Supple, JVD not distended Respiratory: Clear to auscultation bilaterally, Normal air movement Cardiovascular: No edema, Regular rate/rhythm, Normal S1 S2, Other (Tachycardic) Gastrointestinal: Normal bowel sounds, Soft and benign, Non-distended, No tenderness, Other (PEG tube) Musculoskeletal: No swelling, No tenderness Integumentary: No rashes, No erythema Neurological: Normal strength at 5/5 x4 extr - Studies Laboratory Data (last 24 hrs) 09/28/20 12:10: PT 12.5, INR 1.06, APTT 32.7 09/28/20 12:10: Sodium 148 H, Potassium 4.8, BUN 49 H, Creatinine 0.89, Glucose 87 09/28/20 12:10: WBC 14.0 H, Hgb 13.1 L, Hct 40.2, Plt Count 284 Assessment And Plan - Current Problems (Diagnosis) (1) Pneumothorax Current Visit: Yes Status: Acute (2) Fall Current Visit: Yes Status: Acute (3) COPD (chronic obstructive pulmonary disease) Current Visit: Yes Status: Acute (4) ALS (amyotrophic lateral sclerosis) Current Visit: No Status: Acute - Plan Continue supportive measures. Resume feeding. Free water flushes to treat hypernatremia. Monitor BMP. IV morphine p.r.n. for pain. Bronchodilators p.r.n. Chest physiotherapy-incentive spirometer Dr. James to follow for chest tube management PT.
[2020-09-29] MEDS ORDERED: predniSONE 10 MG TAB FT PRN (10:50)
--- NOTE | 2020-09-29 12:49 | P.PN ---
Subjective Date of Service: 09/29/20 Chief Complaint: Chest pain, fall Subjective: Improving Patient has no SOB, feeling better. Physical Examination - Vital Signs Temperature: 97.4 F Blood Pressure: 119/64 Pulse: 107 Respirations: 20 Pulse Ox (%): 95 - Physical Exam General: Alert, In no apparent distress, Cooperative Respiratory: Normal air movement, Other (RIGHT anterior thoracostomy tube in place, no air leak) Assessment And Plan - Current Problems (Diagnosis) (1) Pneumothorax Current Visit: Yes Status: Acute Plan: will place to water seal today after follow up chest x ray if stable - likely removal of chest tube in AM - likely DC tomorrow if post removal chest x ray stable
[2020-09-29] MEDS ORDERED: JEVITY 1.5 CAL LIQUID 1,000 ML BOT FT SCH (12:53)
--- NOTE | 2020-09-29 14:10 | RAD REPORT ---
EXAM DESCRIPTION: RAD - Chest Single View - 09/29/2020 1:57 pm CLINICAL HISTORY: chest tube Chest pain. COMPARISON: Chest Single View dated 09/29/2020; Chest Single View dated 09/28/2020; Chest Single Vie w dated 09/02/2020; Chest Single View dated 06/15/2020 FINDINGS: Portable technique limits examination quality. Small he will or right-sided chest tube remains in place. Small apical pneumothorax on the right appe ars unchanged since comparative study. The heart is upper limit normal in size.
[2020-09-29] MEDS: JEVITY 1.5 CAL LIQUID 1,000 ML BOT FT SCH ×2 (18:00→20:33)
[2020-09-29] MEDS: JUVEN PACKET PO SCH (20:33)
[2020-09-29] MEDS: RILUZOLE 50 MG FT SCH (21:00)
[2020-09-30] MEDS: IPRATROPIUM BROM 0.5MG/2.5ML NEB SCH ×7 (00:10→23:10)
[2020-09-30] MEDS: HEPARIN 5000 UNIT/ML 1 ML VIAL SQ SCH ×3 (01:26→18:11)
[2020-09-30] MEDS ORDERED: NA CHLORIDE 0.9% 500 ML IV ONE (02:38)
[2020-09-30] MEDS ORDERED: NA CHLORIDE 0.9% 500 ML ONE (02:57)
[2020-09-30] MEDS ORDERED: METOPROLOL TARTRATE 5 MG/5 ML INJ IV ONE ×2 (03:01→03:11)
[2020-09-30] MEDS ORDERED: METOPROLOL TARTRATE 5 MG/5 ML INJ IV STA (03:04)
[2020-09-30] MEDS ORDERED: NA CHLORIDE 0.9% 250 ML IV ONE (03:27)
[2020-09-30] MEDS ORDERED: NA CHLORIDE 0.9% 250 ML ONE (03:44)
[2020-09-30 04:52] LABS: Absolute Lymphocytes (CBC) 1.3 K/uL (0.7-4.9); Basophils % 0.6 % (0-1.3); Hematocrit 34.2 % (39.6-49.0); Lymphocytes % 10.8 % (15.3-44.8); MPV 10.2 fL (7.6-11.3); RBC Red Blood Cell Count 3.79 M/uL (4.33-5.43)
[2020-09-30 05:13] LABS: BUN Blood Urea Nitrogen 44 mg/dL (7-18); Bicarbonate 32 mmol/L (21-32); Creatine Phosphokinase 97 U/L (39-308); Glucose Level 150 mg/dL (74-106); Potassium 4.1 mmol/L (3.5-5.1); Sodium Level 149 mmol/L (136-145)
--- NOTE | 2020-09-30 06:23 | EKG ---
Test Date: 2020-09-30 Test Time: 04:30:45 Demo Coordinator: OPAL MEASUREMENT RESULTS: Intervals: Rate: 106 VT: 128 QRSD: 124 QT: 368 QTc: 488 [place]: P: 79 VT: 128 QRS: 70 T: 74 INTERPRETIVE STATEMENTS: Sinus tachycardia with frequent premature ventricular complexes Right bundle branch block T wave abnormality, consider lateral ischemia Abnormal ECG Compared to ECG 09/30/2020 02:45:06 T-wave abnormality now present Possible ischemia now present Atrial fibrillation no longer present Electronically Signed On 09-30-20 06:22:27 SEGMENTAL PAVER INSTALLER by Endy Partida
--- NOTE | 2020-09-30 06:23 | EKG ---
Test Date: 2020-09-30 Test Time: 02:45:06 Electrical Tester: OPAL MEASUREMENT RESULTS: Intervals: Rate: 149 [place]: QRSD: 124 QT: 300 QTc: 472 [place]: P: VA: QRS: 55 T: 67 INTERPRETIVE STATEMENTS: Atrial fibrillation with rapid ventricular response with premature ventricular or aberrantly conducted complexes Right bundle branch block Abnormal ECG Compared to ECG 09/29/2020 00:30:05 Ventricular premature complex(es) now present Sinus tachycardia no longer present Fusion complex(es) no longer present Left anterior fascicular block no longer present Bifascicular block no longer present Electronically Signed On 09-30-20 06:22:29 NC MACHINIST by Endy Partida
--- NOTE | 2020-09-30 08:32 | RAD REPORT ---
EXAM DESCRIPTION: RAD - Chest Single View - 09/30/2020 5:21 am CLINICAL HISTORY: chest tube Chest pain. COMPARISON: Chest Single View dated 09/29/2020; Chest Single View dated 09/29/2020; Chest Single Vie w dated 09/28/2020; Chest Single View dated 09/02/2020 FINDINGS: Portable technique limits examination quality. Small bore chest tube remains in place along the right lateral aspect of the thorax. Bilateral inters titial pulmonary opacities are again noted with slight increase in right basilar lung opacity since c omparative study. Small right apical pneumothorax persists, essentially unchanged. The heart is omi l in size.
[2020-09-30] MEDS ORDERED: AMITRIPTYLINE 10 MG TAB FT SCH (09:00)
[2020-09-30] MEDS: RILUZOLE 50 MG FT SCH ×2 (09:00→20:26)
--- NOTE | 2020-09-30 09:53 | RAD REPORT ---
EXAM DESCRIPTION: RAD - Chest Single View - 09/30/2020 9:29 am CLINICAL HISTORY: s/p chest tube removal Chest pain. COMPARISON: Chest Single View dated 09/30/2020; Chest Single View dated 09/29/2020; Chest Single Vie w dated 09/29/2020; Chest Single View dated 09/28/2020 FINDINGS: Portable technique limits examination quality. Right-sided small bore chest tube has been removed. Small apical pneumothorax on the right remains vi sible, however is unchanged since comparative studies. Small right pleural effusion is noted. The hea rt is upper limit of normal in size.
[2020-09-30] MEDS: JEVITY 1.5 CAL LIQUID 1,000 ML BOT FT SCH ×5 (10:03→20:25)
[2020-09-30] MEDS: JUVEN PACKET PO SCH ×2 (10:06→20:25)
[2020-09-30] MEDS ORDERED: METOPROLOL TAR 25 MG TAB PO ONE (10:07)
[2020-09-30] MEDS: FINASTERIDE 5 MG TAB PO SCH (10:11)
--- NOTE | 2020-09-30 12:58 | P.PN ---
Subjective Date of Service: 09/30/20 Chief Complaint: Chest pain, fall Patient has been experiencing runs of AFib with RVR and sinus tachycardia. Patient seen by Cardiology-Dr. Be Patient seen by Dr. James and chest tube removed today. He denies any significant pain. Serum sodium level has trended down. nd Physical Examination - Vital Signs Temperature: 98.3 F Blood Pressure: 108/64 Pulse: 152 Respirations: 34 Pulse Ox (%): 94 - Physical Exam General: Alert, In no apparent distress HEENT: Mucous membr. moist/pink Respiratory: Clear to auscultation bilaterally, Normal air movement Cardiovascular: No edema, Normal S1 S2, Irregular heart rate/rhythm Gastrointestinal: Normal bowel sounds, Soft and benign, No tenderness Musculoskeletal: No swelling, No erythema Integumentary: No rashes Neurological: Other (Nonfocal) Assessment And Plan - Current Problems (Diagnosis) (1) Pneumothorax Current Visit: Yes Status: Acute (2) Fall Current Visit: Yes Status: Acute (3) COPD (chronic obstructive pulmonary disease) Current Visit: Yes Status: Acute (4) ALS (amyotrophic lateral sclerosis) Current Visit: No Status: Acute - Plan Continue supportive measures. Chest tube is out today. Repeat chest x-ray shows only small right apical pneumothorax. Patient plans on 100% non-rebreather. Continue Free water flushes to treat hypernatremia. Patient given a bolus of normal saline overnight for the rapid heart rate. Patient started oral metoprolol for the AFib with RVR and tachycardia. Monitor BMP. IV morphine p.r.n. for pain. Bronchodilators p.r.n. Chest physiotherapy-incentive spirometer PT.
[2020-09-30] MEDS: MORPHINE 2 MG/ML SYR IV PRN (15:52)
[2020-09-30] MEDS: METOPROLOL TAR 25 MG TAB PO SCH (18:10)
[2020-09-30] MEDS: LEVALBUTEROL 1.25 MG/3 ML NEB NEB PRN (23:10)
[2020-10-01] MEDS: HEPARIN 5000 UNIT/ML 1 ML VIAL SQ SCH ×3 (01:05→17:52)
[2020-10-01] MEDS: IPRATROPIUM BROM 0.5MG/2.5ML NEB SCH ×6 (03:20→23:25)
[2020-10-01] MEDS ORDERED: NA CHLORIDE 0.9% 500 ML IV ONE ×2 (04:15→05:02)
[2020-10-01] MEDS ORDERED: NA CHLORIDE 0.9% 1,000 ML ONE ×2 (04:17→05:51)
[2020-10-01] MEDS ORDERED: NA CHLORIDE 0.9% 1,000 ML IV ONE (05:38)
[2020-10-01] MEDS ORDERED: DIGOXIN 0.25 MG/ML AMP IV ONE ×2 (05:39→12:00)
[2020-10-01] MEDS ORDERED: DIGOXIN 0.25 MG/ML AMP ONE (05:50)
[2020-10-01] MEDS: METOPROLOL TAR 25 MG TAB PO SCH (06:30)
[2020-10-01 07:59] LABS: BUN Blood Urea Nitrogen 39 mg/dL (7-18); Bicarbonate 30 mmol/L (21-32); Glucose Level 121 mg/dL (74-106); Potassium 4.1 mmol/L (3.5-5.1); Sodium Level 151 mmol/L (136-145)
--- NOTE | 2020-10-01 08:14 | RAD REPORT ---
EXAM DESCRIPTION: [place] Single View10/01/2020 7:12 am CLINICAL HISTORY: Chest pain COMPARISON: September 30 FINDINGS: No change in a minimal right pneumothorax. Small right pleural effusion The lungs appear clear of acute infiltrate. The heart is normal size
[2020-10-01 08:49] LABS: Magnesium 2.1 mg/dL (1.8-2.4); Phosphorus 3.1 mg/dL (2.5-4.9)
[2020-10-01] MEDS: JEVITY 1.5 CAL LIQUID 1,000 ML BOT FT SCH ×5 (08:54→21:00)
[2020-10-01] MEDS ORDERED: D5W 1,000 ML IV SCH (09:00)
[2020-10-01] MEDS: RILUZOLE 50 MG FT SCH ×2 (09:00→21:00)
[2020-10-01] MEDS: FINASTERIDE 5 MG TAB PO SCH (09:03)
[2020-10-01] MEDS: JUVEN PACKET PO SCH ×2 (09:06→21:00)
[2020-10-01] MEDS ORDERED: SOTALOL HCL 80 MG TAB PO ONE (09:41)
--- NOTE | 2020-10-01 10:28 | P.PN ---
Subjective Date of Service: 10/01/20 Chief Complaint: Chest pain, fall Patient continue to experience runs of AFib with RVR and sinus tachycardia. He has also been having intermittent hypotension and has been receiving boluses of normal saline. Pneumothorax is stable on the chest x-ray He denies any significant pain or shortness of breath hi Physical Examination - Vital Signs Temperature: 97 F Blood Pressure: 113/58 Pulse: 144 Respirations: 20 Pulse Ox (%): 95 - Physical Exam General: In no apparent distress, Other (Awake) HEENT: Mucous membr. moist/pink Neck: Supple, JVD not distended Respiratory: Clear to auscultation bilaterally, Normal air movement Cardiovascular: No edema, Normal S1 S2, Irregular heart rate/rhythm (Rapid) Gastrointestinal: Normal bowel sounds, Soft and benign, Non-distended, No tenderness Musculoskeletal: No swelling, No tenderness Integumentary: No rashes, No erythema Neurological: Other (Nonfocal) Assessment And Plan - Current Problems (Diagnosis) (1) Pneumothorax Current Visit: Yes Status: Acute (2) Fall Current Visit: Yes Status: Acute (3) COPD (chronic obstructive pulmonary disease) Current Visit: Yes Status: Acute (4) ALS (amyotrophic lateral sclerosis) Current Visit: No Status: Acute - Plan Serial chest x-ray shows stable pneumothorax. Continue Free water flushes to treat hypernatremia. Also started D5 water to be given briefly to treat the hypernatremia. Had a discussion with Dr. Partida. He recommend to start sotalol to control his intermittent rapid AFib. Discontinue metoprolol. Magnesium level is optimal. Monitor BMP. Bronchodilators p.r.n. Chest physiotherapy-incentive spirometer PT.
[2020-10-01] MEDS: MORPHINE 2 MG/ML SYR IV PRN ×2 (14:29→18:00)
--- NOTE | 2020-10-01 14:42 | P.PN ---
Date of Service: 10/01/20 Chest x-ray reviewed and compared to yesterday. No change in the interval. No need for insertion of chest tube at this time. Continue Rx
[2020-10-01 17:37] LABS: Potassium 5.1 mmol/L (3.5-5.1)
[2020-10-01] MEDS: SOTALOL HCL 80 MG TAB PO SCH (17:55)
--- NOTE | 2020-10-01 20:45 | RAD REPORT ---
EXAM DESCRIPTION: [place] Single View10/01/2020 8:38 pm CLINICAL HISTORY: Shortness of breath COMPARISON: October 01, 2020 FINDINGS: Right pneumothorax is no longer visualized. Opacities have developed within the right lung base Main lungs appear clear of acute infiltrate. IMPRESSION: Right basilar opacities may represent pneumonia or combination of small pleural effusion and atelectasis
[2020-10-01] MEDS ORDERED: CEFEPIME 1 GM/VIAL IV SCH (22:00)
[2020-10-01] MEDS ORDERED: WATER FOR INJ,STERILE 10 ML IV ONE (22:00)
[2020-10-01] MEDS ORDERED: CEFEPIME 1 GM/VIAL IVP ONE (22:00)
[2020-10-01] MEDS ORDERED: CEFEPIME 1 GM/100 ML BAG IV ONE (22:34)
[2020-10-01] MEDS ORDERED: CEFEPIME 1 GM/100 ML BAG IV SCH (23:00)
[2020-10-02] MEDS: HEPARIN 5000 UNIT/ML 1 ML VIAL SQ SCH ×3 (00:30→14:21)
[2020-10-02] MEDS: IPRATROPIUM BROM 0.5MG/2.5ML NEB SCH ×4 (03:20→16:00)
[2020-10-02] MEDS: SOTALOL HCL 80 MG TAB PO SCH ×2 (06:11→18:00)
[2020-10-02 06:15] LABS: BUN Blood Urea Nitrogen 40 mg/dL (7-18); Bicarbonate 30 mmol/L (21-32); Glucose Level 123 mg/dL (74-106); Potassium 4.9 mmol/L (3.5-5.1); Sodium Level 145 mmol/L (136-145)
[2020-10-02 06:18] LABS: Absolute Lymphocytes (CBC) 1.1 K/uL (0.7-4.9); Basophils % 0.6 % (0-1.3); Hematocrit 38.1 % (39.6-49.0); Lymphocytes % 7.7 % (15.3-44.8); MPV 10.6 fL (7.6-11.3); RBC Red Blood Cell Count 4.14 M/uL (4.33-5.43)
--- NOTE | 2020-10-02 06:41 | PN ---
Date of Progress Note: 10/01/2020 Mr. Tomlinson had been admitted with a fall; pneumothorax, status post chest tube placement. He has CO PD and ALS. He is on a PEG tube placement for feeding. He is a do not resuscitate. Developed atria l fibrillation, rapid ventricular response, unresponsive to digoxin and metoprolol. He was placed on sotalol 80 mg 1 p.o. b.i.d. Today, hoping to convert him to sinus rhythm. He has a normal echo, aguirre s a normal stress test recently in the office. Continue present management. Patient is presently on heparin subcu. He is on Jevity, inhalers, and antibiotics. Metoprolol was stopped and sotalol was started. I will continue to follow. GI/RENETTA Voice ID: [id number] Report ID: [id number]
--- NOTE | 2020-10-02 06:53 | PN ---
Date of Progress Note: 10/01/2020 Mr. Tomlinson was admitted with pneumothorax, status post fall, status post chest tube. He has ALS and COPD. I was consulted for rapid atrial fibrillation. Digoxin and metoprolol failed. Yesterday, I put him on sotalol 80 mg 1 p.o. b.i.d., and today, he is back to normal sinus rhythm. He has a omi l echo, normal stress test. No need for further cardiac workup. I would continue the sotalol 80 one p.o. b.i.d. I think, he is at very high risk for anticoagulation down the road because of fall and his overall status. He is a do not resuscitate. Upper further, when he will go home, he will go lito e only on sotalol and an aspirin. I will discuss the case further with the hospitalist. He can go h ome whenever it is okay with him. GI/RENETTA Voice ID: [id number] Report ID: [id number]
[2020-10-02] MEDS ORDERED: VANCOMYCIN/NS 1 gm 1 GM/250 ML BAG IVPB SCH (08:00)
--- NOTE | 2020-10-02 08:17 | CON ---
Date of Consultation: 09/30/2020 Reason For Consultation: New-onset atrial fibrillation. History Of Present Illness: The main reason for admission on 09/28/2020 was patient was status post fall. He had a chest CT scan showing a 20% to 25% right-sided pneumothorax, primarily anteriorly. T here was an apical and base pneumothorax component. Multiple lateral and posterior nondisplaced rib fractures. While he was being treated for the pneumothorax, he developed atrial fibrillation and I w as consulted. Chest tube had been placed by Dr. James. The patient had been seen in the office fo r recent episode of diastolic congestive heart failure and he had a normal ejection fraction and he h ad a normal stress test. He has a history of severe ALS and COPD. He also has a PEG tube that is ch ronic and is a do not resuscitate. He does not have any symptoms with his atrial fibrillation, but h is heart rate was 109 when I saw him with normal blood pressure and he was afebrile and breathing 16 times a minute. Past Medical History: As stated above. Allergies: NONE. Social History: Positive for being a do not resuscitate. Unremarkable. Family History: Unremarkable. Medications: At home include riluzole 50 mg daily, Proscar, prednisone as needed, and albuterol as n eeded. Physical Examination: Vital Signs: Stable. He was afebrile. He was in atrial fibrillation with rate of 109. HEENT: Negative. Neck: Supple. No bruits. Chest: Reveals some expiratory wheezing. Cardiac: Revealed atrial fibrillation. No murmurs, gallops, or rubs. Abdomen: Benign. Extremities: Revealed no clubbing, cyanosis, or edema. Diagnostic Data: His CT of the chest listed earlier. He had a white count of 11.7, hemoglobin of 11 .3. His sodium was 147, creatinine of 0.84. His glucose was low 94. His troponin was negative. Pr ocalcitonin was negative. Impression And Plan: 1.New-onset atrial fibrillation, may be secondary to his pneumothorax. 2.Amyotrophic lateral sclerosis. 3.Chronic obstructive pulmonary disease. 4.Status post fall with pneumothorax, status post chest tube placement. 5.DNR status. 6.PEG tube placement in the past. I recommend we treat Mr. Tomlinson with digoxin and low-dose metoprolol and if that does not work, I th ink we should put him on sotalol. Does not need any further cardiac workup at this point. AMELIA Voice ID: [id number] Report ID: [id number]
[2020-10-02] MEDS: RILUZOLE 50 MG FT SCH ×2 (08:40→21:00)
[2020-10-02] MEDS: FINASTERIDE 5 MG TAB PO SCH (08:40)
[2020-10-02] MEDS: JUVEN PACKET PO SCH ×2 (08:41→21:00)
[2020-10-02] MEDS: JEVITY 1.5 CAL LIQUID 1,000 ML BOT FT SCH ×4 (08:43→20:00)
[2020-10-02] MEDS ORDERED: CEFEPIME/SWI 1gm 10 ML IVP SCH (09:00)
[2020-10-02] MEDS: CEFEPIME/SWI 1gm 1 GM/10 ML SYR IVP SCH ×2 (09:00→21:00)
[2020-10-02] MEDS ORDERED: CEFEPIME/SWI 1gm 1 GM/10 ML SYR IVP ONE (09:30)
--- NOTE | 2020-10-02 10:18 | P.PN ---
Subjective Date of Service: 10/02/20 Chief Complaint: Chest pain, fall Patient heart rate has improved and currently in sinus rhythm after starting sotalol. Blood pressure has been stable. He developed shortness of breath last night and had to be placed on high-flow oxygen. Repeat chest x-ray shows atelectasis versus infiltrate versus effusion. Pneumothorax is stable. Patient has minimal breathing excursions contributing to the atelectasis. He denies any chest pain. Physical Examination - Vital Signs Temperature: 98.6 F Blood Pressure: 109/61 Pulse: 70 Respirations: 18 Pulse Ox (%): 96 - Physical Exam General: Alert, In no apparent distress HEENT: Mucous membr. moist/pink Neck: Supple, JVD not distended Respiratory: Clear to auscultation bilaterally, Diminished Cardiovascular: No edema, Regular rate/rhythm, Normal S1 S2 Gastrointestinal: Normal bowel sounds, Soft and benign, No tenderness Musculoskeletal: No swelling, No tenderness Integumentary: Pressure ulcer (Sacrum-stage II) Neurological: Other (Nonfocal) Assessment And Plan - Current Problems (Diagnosis) (1) Pneumothorax Current Visit: Yes Status: Acute (2) Fall Current Visit: Yes Status: Acute (3) COPD (chronic obstructive pulmonary disease) Current Visit: Yes Status: Acute (4) ALS (amyotrophic lateral sclerosis) Current Visit: No Status: Acute (5) Sacral decubitus ulcer, stage II Current Visit: Yes Status: Acute - Plan Serial chest x-ray shows stable pneumothorax. Hypernatremia corrected. Continue sotalol. Patient considered a poor candidate for anticoagulation given his multiple falls. Patient started on antibiotic for possible pneumonia. Recommended incentive spirometry. Follow blood cultures. Pain management as needed Monitor BMP. Bronchodilators p.r.n. Wound care for sacral decubitus ulcer. Frequent turning. PT.
[2020-10-02] MEDS ORDERED: JEVITY 1.5 CAL LIQUID 1,000 ML BOT FT SCH (12:00)
[2020-10-02 12:51] VITALS: TEMP 98.1
--- NOTE | 2020-10-02 13:02 | P.PN ---
Date of Service: 10/02/20 I was called to reexamine patient because he was desaturating. On examination, agonal breathing noteed. Very minimal breath sounds bilaterally. No breathing excursions noted. His oxygen saturation was low 70% on high-flow oxygen and 100% FiO2. Heart rate and blood pressure has stable. Patient is responsive. Patient placed on BiPAP with set ventilation rate and IPAP/EPAP 13/8. Tidal volumes up to 400ml. I met with family and updated and daughter about patient's current clinical status. They were informed of poor prognosis. The patient apparently has not been getting his Riluzole. Nursing staff stated family told her they felt the Riluzole is not necessary and so did not bring it to the hospital when the nursing staff requested for it. Family comfirmed DNR and DNI status. Patient already started on antibiotic for possible infiltrate her chest x-ray result. Dr. Domínguez updated on patient's current clinical status. Patient transferred to the ICU for close monitoring on BiPAP. Critical care time spent managing patient's acute respiratory failure was about 48 min.
[2020-10-02] MEDS ORDERED: GLYCOPYRROLATE 0.2 MG/ML SYR IV PRN ×3 (13:53→15:00)
[2020-10-02] MEDS ORDERED: LORazepam 2 MG/ML VIAL IV SCH (14:00)
[2020-10-02 14:14] VITALS: O2SAT 100
[2020-10-02] MEDS ORDERED: MORPHINE 4 MG/ML SYR ONE ×2 (14:17→18:19)
[2020-10-02] MEDS ORDERED: LORazepam 2 MG/ML VIAL IV PRN (15:00)
[2020-10-02] MEDS: MORPHINE 4 MG/ML SYR IV PRN ×3 (15:29→18:55)
[2020-10-02] MEDS ORDERED: LORazepam 2 MG/ML VIAL ONE (19:28)
[2020-10-02 20:17] VITALS: BP 0/0
--- NOTE | 2020-10-02 20:21 | P.DS ---
Admission Date: 09/28/20 Discharge Date: 10/02/20 Reason for Admission: Chest pain, fall Consultations: General surgery- Dr. Jmaes Cardiology- Dr. Partida Procedures: Chest CT FINDINGS: Nondisplaced fracture of the lateral right sixth rib is present. Laureen nth rib is fractured anteriorly near the costochondral junction. Right fourth rib is questionably fractured posteriorly where the rib abuts the transverse process. Posterior ninth rib fracture is present. Tenth rib is fractured near the costochondral junction. None of the rib fractures are displaced. Patient has a 20-25% pneumothorax primarily in the apex and anterior chest. Underlying COPD changes are present. Small amount of pleural fluid is present which could be reactive fluid or blood. There is lung parenchymal opacification in the posterior gutter on the right that is probably atelectasis. Delete select No abnormal mediastinal or hilar masses or lymphadenopathy seen. No gross aortic or pulmonary artery finding suspected. Assessment is limited in the absence of IV contrast. No pericardial effusion. Limited upper abdomen imaging shows a PEG tube. No fluid in the upper abdomen or adjacent to the liver. IMPRESSION: Approximately 20-25% right-sided pneumothorax primarily anteriorly positioned. There is apex and base pneumothorax component. Patient has multiple lateral and posterior nondisplaced rib fractures. No rib shows more than 1 fracture. Trace amount of pleural fluid or blood. Posterior right gutter atelectasis present. Most recent chest x-ray FINDINGS: Right pneumothorax is no longer visualized. Opacities have developed within the right lung base Main lungs appear clear of acute infiltrate. IMPRESSION: Right basilar opacities may represent pneumonia or combination of small pleural effusion and atelectasis Brief History of Present Illness: Patient was admitted for 20-25% right-sided pneumothorax, the chest tube inserted. Hospital Course: 79-year-old male with history of ALS, COPD presented to the emergency department after a fall and was diagnosed with a 20-25% right pneumothorax with multiple nondisplaced rib fractures. General surgery placed chest tube and patient was admitted to the floor patient was noted to be hypernatremic and was treated with free water flushes through PEG tube patient had AFib with RVR on 3rd day of admission, sodium improved. Chest tube was removed on 09/30/2020. Patient was started on beta ilya for AFib RVR and continued with chest physiotherapy and incentive spirometry. On night of 10/01/2020 patient became short of breath, stat chest x-ray reveals right atelectasis verses pneumonia versus effusion., today on 10/02/2020 patient was desaturating, noted to have agonal breathing. Saturations were in the 70s on high-flow oxygen. Patient was initially placed on BiPAP and moved to the ICU, case was reviewed with family, , daughter. Patient was noted to be DNR/DNI. BiPAP was removed, family allowed to be at bedside. Patient became bradycardic and peacefully soon after at 1916 on 10/02/2020 with his family at bedside. May he rest in peace. <Sai Ward - Last Filed: 10/02/20 20:17> Admission Date: 09/28/20 Discharge Date: 10/03/20 - Problems (1) Pneumothorax Status: Acute (2) Fall Status: Acute (3) COPD (chronic obstructive pulmonary disease) Status: Acute (4) ALS (amyotrophic lateral sclerosis) Status: Acute (5) Sacral decubitus ulcer, stage II Status: Acute Hospital Course: Patient was not tolerating the BIPAP. Family requested the BiPAP to be removed and decided to pursue comfort measures. BiPAP was discontinued, comfort measures initiated. Patient on 10/02/2020 at 1916. <jabier milian - Last Filed: 10/03/20 18:09> Disposition: Discharge Condition: Vital Signs/Physical Exam: Temp Pulse Resp BP Pulse Ox 98.1 F 0 L 20 0/0 L 89 L 10/02/20 12:00 10/02/20 19:16 10/02/20 18:00 10/02/20 19:16 10/02/20 18:00 General: Unresponsive HEENT: Other (Pupils fixed, dilated) Respiratory: Other (No spontaneous respiratory effort) Cardiovascular: Other (Absent heart sounds, pulseless) Laboratory Data at Discharge: WBC 14.6 K/uL (4.3-10.9) H D 10/02/20 05:39 Hgb 12.3 g/dL (13.6-17.9) L 10/02/20 05:39 Hct 38.1 % (39.6-49.0) L 10/02/20 05:39 Plt Count 271 K/uL (152-406) 10/02/20 05:39 PT 12.5 SECONDS (9.5-12.5) 09/28/20 12:10 INR 1.06 09/28/20 12:10 APTT 32.7 SECONDS (24.3-36.9) 09/28/20 12:10 Sodium 145 mmol/L (136-145) 10/02/20 05:39 Potassium 4.9 mmol/L (3.5-5.1) 10/02/20 05:39 BUN 40 mg/dL (7-18) H 10/02/20 05:39 Creatinine 0.70 mg/dL (0.55-1.3) 10/02/20 05:39 Glucose 123 mg/dL (74-106) H 10/02/20 05:39 Phosphorus 3.1 mg/dL (2.5-4.9) 10/01/20 07:33 Magnesium 2.1 mg/dL (1.8-2.4) 10/01/20 07:33 <Sai Ward - Last Filed: 10/02/20 20:17> Vital Signs/Physical Exam: Temp Pulse Resp BP Pulse Ox 98.1 F 0 L 20 0/0 L 89 L 10/02/20 12:00 10/02/20 19:16 10/02/20 18:00 10/02/20 19:16 10/02/20 18:00 Laboratory Data at Discharge: WBC 14.6 K/uL (4.3-10.9) H D 10/02/20 05:39 Hgb 12.3 g/dL (13.6-17.9) L 10/02/20 05:39 Hct 38.1 % (39.6-49.0) L 10/02/20 05:39 Plt Count 271 K/uL (152-406) 10/02/20 05:39 PT 12.5 SECONDS (9.5-12.5) 09/28/20 12:10 INR 1.06 09/28/20 12:10 APTT 32.7 SECONDS (24.3-36.9) 09/28/20 12:10 Sodium 145 mmol/L (136-145) 10/02/20 05:39 Potassium 4.9 mmol/L (3.5-5.1) 10/02/20 05:39 BUN 40 mg/dL (7-18) H 10/02/20 05:39 Creatinine 0.70 mg/dL (0.55-1.3) 10/02/20 05:39 Glucose 123 mg/dL (74-106) H 10/02/20 05:39 Phosphorus 3.1 mg/dL (2.5-4.9) 10/01/20 07:33 Magnesium 2.1 mg/dL (1.8-2.4) 10/01/20 07:33 <jabier milian - Last Filed: 10/03/20 18:09> Patient Discharge Instructions: May he rest in peace Time spent managing pt's care (in minutes): 35 <Sai Ward - Last Filed: 10/02/20 20:17> <jabier milian - Last Filed: 10/03/20 18:09> Home Medications: Albuterol Sulfate [Proair Respiclick] 90 mcg IH Q4HP PRN 08/17/20 Riluzole 50 mg FT BID 08/17/20 predniSONE [Deltasone*] 10 mg FT DAILY PRN 08/17/20 Sergo [Sergo*] 1 pkt PO BID #60 powd.pack 09/04/20 Albuterol Neb [Proventil 0.083% Neb Soln] 2.5 mg NEB [id number] PRN 09/28/20 Amitriptyline [Elavil*] 1 tab FT DAILY 09/28/20 Finasteride [Proscar] 1 tab PO DAILY 09/28/20 Furosemide [Lasix] 20 mg PO DAILY PRN 09/28/20 Ipratropium Neb [Atrovent*] 0.5 mg NEB [id number] PRN 09/28/20 Jevity 1.5 Nima [Jevity 1.5 Nima*] 12 oz FT Q4H 09/28/20 Potassium Chloride [K-Dur] 10 meq FT DAILY 09/28/20 Followup: Unknown,U [Primary Care Provider] -
== END 2020-10-02 20:50 | disposition expired | DRG 199 ==
LOC: ER 09:41 → ERHOLD 13:27 → 2ND 17:36 → ERHOLD 10-02 13:34
PROVIDERS: ADMIT Internal Medicine; ATTEND Internal Medicine
PROC: 0W9930Z Drainage of Right Pleural Cavity with Drainage Device, Percutaneous Approach (ICD-10-PCS; principal; 2020-09-28)
PROC: 5A09457 Assistance with Respiratory Ventilation, 24-96 Consecutive Hours, Continuous Positive Airway Pressure (ICD-10-PCS; 2020-09-29)
DX: J93.9 Pneumothorax, unspecified (principal); J96.00 Acute respiratory failure, unspecified whether with hypoxia or hypercapnia; J18.9 Pneumonia, unspecified organism; S22.41XA Multiple fractures of ribs, right side, initial encounter for closed fracture; E44.0 Moderate protein-calorie malnutrition; Z68.1 Body mass index [BMI] 19.9 or less, adult; I45.2 Bifascicular block; E87.0 Hyperosmolality and hypernatremia; G12.21 Amyotrophic lateral sclerosis; J44.0 Chronic obstructive pulmonary disease with (acute) lower respiratory infection; I48.91 Unspecified atrial fibrillation; L89.152 Pressure ulcer of sacral region, stage 2; R00.1 Bradycardia, unspecified; R00.0 Tachycardia, unspecified; W18.30XA Fall on same level, unspecified, initial encounter; Z79.52 Long term (current) use of systemic steroids; Z79.899 Other long term (current) drug therapy; Z93.1 Gastrostomy status; Z79.84 Long term (current) use of oral hypoglycemic drugs; Z66 Do not resuscitate; Z20.828 Contact with and (suspected) exposure to other viral communicable diseases
CPT/HCPCS: 36415; 71045; 71250; 80048; 82550; 83605; 83735; 84100; 84145; 85025; 85610; 85730; 87040; 93005; 94002; 94003; 94010; 94640; 94660; 94760; 96360; 96372; 97110; 97161; 99285; J0692; J1160; J1644; J2270; J3370; J7030; J7040; J7042; J7050; U0003